=== PATIENT | female | born 1945 | race Caucasian/White ===

== ENCOUNTER 2019-02-13 19:04 | Inpatient (IN) | payer MEDICARE, OTHER ==
[~2019-02-13] VITALS: Ht 152.4 cm; Wt 73.9 kg
[~2019-02-13 19:04] MED LIST: ACETAMINOPHEN120 MG PO; AMLODIPINE BESYL5 MG ORAL; ASPIRIN EC81 MG ORAL; DOCUSATE SODIU100 M2 ORAL; LEVOTHYROXINE200 MCG IV; LEVOTHYROXINE75 MCG ORAL; NAHCO3650 MG ORAL; OMEPRAZOLE20 M2 ORAL; PROTONIX40 MG ORAL; SODIUM BICARBO454 GM MC; ZYPREXA ZYDIS10 MG ORAL; ZYPREXA10 M1
--- NOTE | 2019-02-13 19:08 | Emergency Room Report ---
History of Present Illness General Chief Complaint: Generalized Weakness Source: Medical Record Present Illness HPI 73-year-old female history of CKD, hypertension, dementia presents with AMS, x1 day, patient not compliant with her medication, patient denies any complaints at this moment however at the long-term she is noncompliant with her medication, is being aggressive, she denies any chest pain shortness of breath, patient was sent to the hospital for evaluation for her AMS and failure to thrive. There are no aggravating or relieving factors, severity is severe. Allergies: Coded Allergies: NO KNOWN DRUG ALLERGIES (Unverified Allergy, Unknown, 07/21/14) Patient History Limited by: medical condition - Dementia Past Medical History: see triage record Last Menstrual Period: n/a Reviewed Nursing Documentation: PMH: Agreed; PSxH: Agreed Nursing Documentation-PMH Past Medical History: No History, Except For Hx Cardiac Problems: Yes - Syncope Hx Hypertension: Yes - HTN Hx Cancer: No Hx Gastrointestinal Problems: No Hx Neurological Problems: No Review of Systems All Other Systems: limited - Dementia Physical Exam Vital Signs Date Time Temp Pulse Resp B/P (MAP) Pulse Ox O2 Delivery O2 Flow Rate FiO2 02/13/19 19:01 98.8 86 18 137/88 (104) 100 Room Air Sp02 EP Interpretation: reviewed, normal General Appearance: well appearing, no apparent distress, alert Head: normocephalic, atraumatic Eyes: bilateral eye PERRL, bilateral eye EOMI ENT: uvula midline, moist mucus membranes Neck: supple, thyroid normal, supple/symm/no masses Respiratory: lungs clear, no respiratory distress, no retraction, no accessory muscle use Cardiovascular #1: normal peripheral pulses, regular rate, rhythm, no edema, no gallop, no murmur Gastrointestinal: non tender, soft, no guarding, no rebound Musculoskeletal: normal inspection Neurologic: alert, speech normal Psychiatric: mood/affect normal Skin: no rash, warm/dry Medical Decision Making Diagnostic Impression: Primary Impression: Altered mental status, unspecified Additional Impressions: CKD (chronic kidney disease) Failure to thrive ER Course 73-year-old female with generalized weakness, noncompliance, EMS, will admit patient for failure to thrive, patient with no complaints, signout received from Dr. Alonzo OCONNOR Patient admitted to Dr. Alonzo OCONNOR Laboratory Tests Test 02/13/19 09:20 02/13/19 19:20 02/13/19 19:25 Troponin I 0.004 ng/mL (0.000-0.056) White Blood Count 9.2 K/UL (4.8-10.8) Red Blood Count 3.76 M/UL (4.20-5.40) L Hemoglobin 10.8 G/DL (12.0-16.0) L Hematocrit 32.7 % (37.0-47.0) L Mean Corpuscular Volume 87 FL (80-99) Mean Corpuscular Hemoglobin 28.8 PG (27.0-31.0) Mean Corpuscular Hemoglobin Concent 33.1 G/DL (32.0-36.0) Red Cell Distribution Width 13.8 % (11.6-14.8) Platelet Count 256 K/UL (150-450) Mean Platelet Volume 5.8 FL (6.5-10.1) L Neutrophils (%) (Auto) 69.9 % (45.0-75.0) Lymphocytes (%) (Auto) 19.2 % (20.0-45.0) L Monocytes (%) (Auto) 6.4 % (1.0-10.0) Eosinophils (%) (Auto) 3.3 % (0.0-3.0) H Basophils (%) (Auto) 1.1 % (0.0-2.0) Prothrombin Time 10.8 SEC (9.30-11.50) Prothrombin Time INR 1.0 (0.9-1.1) PTT 30 SEC (23-33) Sodium Level 139 MMOL/L (136-145) Potassium Level 4.0 MMOL/L (3.5-5.1) Chloride Level 105 MMOL/L (98-107) Carbon Dioxide Level 21 MMOL/L (21-32) Anion Gap 13 mmol/L (5-15) Blood Urea Nitrogen 37 mg/dL (7-18) H Creatinine 3.5 MG/DL (0.55-1.30) H Estimate Glomerular Filtration Rate mL/min (>60) Glucose Level 104 MG/DL (74-106) Lactic Acid Level 1.00 mmol/L (0.4-2.0) Calcium Level 8.4 MG/DL (8.5-10.1) L Phosphorus Level 2.7 MG/DL (2.5-4.9) Magnesium Level 1.9 MG/DL (1.8-2.4) Total Bilirubin 0.2 MG/DL (0.2-1.0) Aspartate Amino Transferase (AST) 14 U/L (15-37) L Alanine Aminotransferase (ALT) 7 U/L (12-78) L Alkaline Phosphatase 74 U/L (46-116) Total Creatine Kinase 188 U/L (26-308) Creatine Kinase MB 1.0 NG/ML (0.0-3.6) Creatine Kinase MB Relative Index 0.5 Total Protein 8.0 G/DL (6.4-8.2) Albumin 3.2 G/DL (3.4-5.0) L Globulin 4.8 g/dL Albumin/Globulin Ratio 0.7 (1.0-2.7) L Lipase 401 U/L (73-393) H Thyroid Stimulating Hormone (TSH) 4.154 uiU/mL (0.358-3.740) Free Thyroxine 0.60 NG/DL (0.76-1.46) L Free Triiodothyronine 1.7 pg/mL (2.3-4.2) L Urine Color Pale yellow Urine Appearance Slightly cloudy Urine pH 6.5 (4.5-8.0) Urine Specific [place] 1.005 (1.005-1.035) Urine Protein 3+ (NEGATIVE) H Urine Glucose (UA) 1+ (NEGATIVE) H Urine Ketones Negative (NEGATIVE) Urine Blood 1+ (NEGATIVE) H Urine Nitrite Negative (NEGATIVE) Urine Bilirubin Negative (NEGATIVE) Urine Urobilinogen Normal MG/DL (0.0-1.0) Urine Leukocyte Esterase 1+ (NEGATIVE) H Urine RBC 0-2 /HPF (0 - 2) Urine WBC 5-10 /HPF (0 - 2) H Urine Squamous Epithelial Cells Few /LPF (NONE/OCC) Urine Amorphous Sediment Moderate /LPF (NONE) H Urine Bacteria Few /HPF (NONE) EKG Diagnostic Results EKG Time: 19:09 EP Interpretation: Atrial flutter, rate 81, QTc 429, normal axis, no acute ST elevations Rate: normal Rhythm: other - Atrial flutter ST Segments: no acute changes ASA given to the pt in ED: No Chest X-Ray Diagnostic Results Chest X-Ray Diagnostic Results : Chest X-Ray Ordered: Yes # of Views/Limited/Complete: 1 View Indication: Other - Preop EP Interpretation: Yes Interpretation: no consolidation, no effusion, no pneumothorax, no acute cardiopulmonary disease Impression: No acute disease Electronically Signed by: Aristeo Isidro MD Last Vital Signs Date Time Temp Pulse Resp B/P (MAP) Pulse Ox O2 Delivery O2 Flow Rate FiO2 02/13/19 19:01 98.8 86 18 137/88 (104) 100 Room Air Disposition: ADMITTED INPATIENT Condition: Stable Aristeo Isidro MD Feb 13, 2019 19:08
--- NOTE | 2019-02-13 19:12 | NUR ---
ED Nurse Note: Patient deborah HANSEN from [facility] c/o general weakness and nonadherence to medications, patient complains of no pain at this time. Pt is AO x 3times due to dementia status, on room air no distress. ERMD seen Pt at bedside.
--- NOTE | 2019-02-13 19:22 | NUR ---
ED Nurse Note: Blood sample sent to lab.
--- NOTE | 2019-02-13 19:23 | NUR ---
ED Nurse Note: X ray at bedside.
[2019-02-13 19:28] VITALS: BP 137/100
[2019-02-13 19:37] LABS: BASOPHILS % (AUTO) 1.1 % (0.0-2.0); EOSINOPHILS % (AUTO) 3.3 % (0.0-3.0); HEMATOCRIT 32.7 % (37.0-47.0); HEMOGLOBIN 10.8 G/DL (12.0-16.0); LYMPHOCYTES % (AUTO) 19.2 % (20.0-45.0); MEAN CORPUSCULAR VOLUME 87 FL (80-99); MONOCYTES % (AUTO) 6.4 % (1.0-10.0); NEUTROPHILS % (AUTO) 69.9 % (45.0-75.0); PLATELET COUNT 256 K/UL (150-450); RED BLOOD COUNT 3.76 M/UL (4.20-5.40); RED CELL DISTRIBUTION WIDTH 13.8 % (11.6-14.8); WHITE BLOOD COUNT 9.2 K/UL (4.8-10.8)
[2019-02-13 19:46] LABS: ANION GAP 13 mmol/L (5-15); BLOOD UREA NITROGEN 37 mg/dL (7-18); CALCIUM 8.4 MG/DL (8.5-10.1); CARBON DIOXIDE 21 MMOL/L (21-32); CHLORIDE 105 MMOL/L (98-107); CREATININE 3.5 MG/DL (0.55-1.30); SODIUM 139 MMOL/L (136-145)
[2019-02-13] MEDS ORDERED: RANITIDINE HCL150 M2 PO ×2 (19:47→22:54)
[2019-02-13 20:01] LABS: ALANINE AMINOTRANSFERASE 7 U/L (12-78); ALBUMIN 3.2 G/DL (3.4-5.0); ALBUMIN/GLOBULIN RATIO 0.7 (1.0-2.7); ALKALINE PHOSPHATASE 74 U/L (46-116); ASPARTATE AMINO TRANSFERASE 14 U/L (15-37); BILIRUBIN,TOTAL 0.2 MG/DL (0.2-1.0); CREATINE KINASE 188 U/L (26-308); PHOSPHORUS 2.7 MG/DL (2.5-4.9)
--- NOTE | 2019-02-13 20:19 | NUR ---
ED Nurse Note: Urine sample sent to lab.
[2019-02-13 20:25] LABS: APPEARANCE,URINE SLIGHTLY CLOUDY; BILIRUBIN, URINE NEGATIVE (NEGATIVE); COLOR,URINE PALE YELLOW; GLUCOSE, URINE (UA) 1+ (NEGATIVE); KETONES,URINE NEGATIVE (NEGATIVE); LEUKOCYTE ESTERASE ,URINE 1+ (NEGATIVE); NITRITE,URINE NEGATIVE (NEGATIVE); PH,URINE 6.5 (4.5-8.0); PROTEIN,URINE 3+ (NEGATIVE); UROBILINOGEN,URINE NORMAL MG/DL (0.0-1.0)
--- NOTE | 2019-02-13 20:41 | NUR ---
ED Nurse Note: Phone with Pt's conservator Page, Kenzie, Pt is DNR status, will report to floor RN and verify again.
[2019-02-13 20:44] VITALS: BP 132/78
--- NOTE | 2019-02-13 21:00 | NUR ---
ED Nurse Note: Report give to RN Minsu, Pt is AO x 3 times due to dementia ststus, VSS, on [place] air no distress. daytime caregiver is on bedside with Pt's belongings.
[2019-02-13 21:10] VITALS: BP 149/94
--- NOTE | 2019-02-13 21:10 | NUR ---
NURSE NOTES: Received report from Jose F Bobo RN from ER. Patient arrived on the unit at 2109 with JORDIN Oliveira from ER. Patient in stable condition breathing without complication. Vital signs stable. Primary caregiver at the bedside, named Clarissa. Denies pain at this time. Patient knows her name, , fact that she's in the hospital, but can't recall the reason why. AAOx3, verbally responsive. Patient's belongings are with the caregiver, she does not have any valuables. Confirmed at the bedside. Skin is intact. IV sited noted on the RAC, intact, clean, dry. Bed placed at the lowest position with alarm, brakes, and side rails up x 2 for safety measures. Call light placed within reach, educated on the purpose of call light and encourage to press for any assistance. Oriented to the room to both field care advocate and the patient. Verbalize understanding. Will continue to monitor and provide care as ordered.
--- NOTE | 2019-02-13 21:34 | NUR ---
NURSE NOTES: No documentation of code status. Called Kenzie Mcmahan listed as conservator for the patient, on file. Confirmed twice with charge nurse, Thea that patient's code status is DNR/DNI from the conservator. Conservator claims that she cannot send the document to prove at this time because she is out of town.
--- NOTE | 2019-02-13 21:45 | NUR ---
NURSE NOTES: Received admission order from Dr. Brennan: to continue medication orders from the facility except to change zyprexa to 15mg QHS, place a sitter if the primary caregiver has to leave during the night, renal diet, place DNR code status as of right now and he will confirm again by calling the conservator in the morning, Heparin for DVT prophylaxis and SCDs while in bed, but patient is able to ambulate as tolerated. CBC, CMP, PHOS in the morning. Will provide care as ordered.
[2019-02-13] MEDS ORDERED: ROBITUSSIN COU237 M2 PO (22:54)
[2019-02-13] MEDS ORDERED: MIRALAX17 G2 ORAL (22:54)
[2019-02-13] MEDS ORDERED: MOM30 ML ORAL (22:54)
[2019-02-13] MEDS ORDERED: HALOPERIDOL5 MG/1 M1 IM (22:54)
[2019-02-13] MEDS ORDERED: RISPERDAL12.5 MG/2 IM (22:54)
[2019-02-13] MEDS ORDERED: NYSTATIN15 GM TOPIC (22:54)
[2019-02-13] MEDS ORDERED: HEPARIN SO5000 UNIT2 SUBQ (22:54)
[2019-02-13] MEDS ORDERED: ESOMEPRAZOLE MA20 MG PO (22:54)
[2019-02-13] MEDS ORDERED: FERROUS SULFAT325 MG ORAL (22:54)
[2019-02-13] MEDS ORDERED: ZYPREXA15 MG ORAL (22:54)
[2019-02-13] MEDS ORDERED: PRAVASTATIN SOD20 M1 ORAL (22:54)
[2019-02-13] MEDS ORDERED: ACETAMINOPHEN325 M1 ORAL (22:54)
[2019-02-13] MEDS ORDERED: SODIUM BICARBO650 MG PO (22:54)
[2019-02-13] MEDS ORDERED: Haloperidol 5mg/ml Inj IM PRN (23:00)
[2019-02-13] MEDS ORDERED: Milk of Magnesia 30ml Ud ORAL PRN ×2 (23:00→23:45)
--- NOTE | 2019-02-13 23:47 | NUR ---
NURSE NOTES: Called Navneet Reyna to check on the last dose of risperdal consta. Per facility PIZZA BAKER named Marie, there is no RN available on the facility at this shift to verify the last dose and to call back tomorrow morning to verify. Will endorse the information to daytime nurse to follow up and to clarify with the pharmacy. Addendum: 02/13/19 at 9594 by Luli Masters RN NURSE NOTES: Informed update on the risperdal to pharmacist Valentina crews [facility].
--- NOTE | 2019-02-13 23:59 | NUR ---
NURSE NOTES: Pharmacist Valentina cannot verify the heparin because of patient's GI bleed hx. Will endorse the matter to day time nurse to follow up with MD, if okay to give or not. Patient currently ambulatory and no signs of in risk for DVT. Will continue to monitor.
[2019-02-14] VITALS: BP 134/79
[2019-02-14 04:00] VITALS: BP 115/59
[2019-02-14 07:05] LABS: BASOPHILS % (AUTO) 0.4 % (0.0-2.0); EOSINOPHILS % (AUTO) 1.6 % (0.0-3.0); HEMATOCRIT 30.3 % (37.0-47.0); HEMOGLOBIN 9.9 G/DL (12.0-16.0); LYMPHOCYTES % (AUTO) 12.3 % (20.0-45.0); MEAN CORPUSCULAR VOLUME 90 FL (80-99); MONOCYTES % (AUTO) 5.2 % (1.0-10.0); NEUTROPHILS % (AUTO) 80.5 % (45.0-75.0); PLATELET COUNT 210 K/UL (150-450); RED BLOOD COUNT 3.38 M/UL (4.20-5.40); RED CELL DISTRIBUTION WIDTH 14.8 % (11.6-14.8); WHITE BLOOD COUNT 8.8 K/UL (4.8-10.8)
--- NOTE | 2019-02-14 07:30 | NUR ---
HAND-OFF: Report given to JORDIN Germain. Patient in stable condition. Caregiver, Clarissa at the bedside.
[2019-02-14 07:31] LABS: ALANINE AMINOTRANSFERASE 6 U/L (12-78); ALBUMIN 2.6 G/DL (3.4-5.0); ALBUMIN/GLOBULIN RATIO 0.6 (1.0-2.7); ALKALINE PHOSPHATASE 60 U/L (46-116); ANION GAP 10 mmol/L (5-15); ASPARTATE AMINO TRANSFERASE 13 U/L (15-37); BILIRUBIN,TOTAL 0.4 MG/DL (0.2-1.0); BLOOD UREA NITROGEN 38 mg/dL (7-18); CARBON DIOXIDE 19 MMOL/L (21-32); CHLORIDE 109 MMOL/L (98-107); CREATININE 3.6 MG/DL (0.55-1.30); PHOSPHORUS 2.8 MG/DL (2.5-4.9); POTASSIUM 4.3 MMOL/L (3.5-5.1); SODIUM 138 MMOL/L (136-145)
--- NOTE | 2019-02-14 07:53 | NUR ---
NURSE NOTES: Patient is alert and awake. Patient is eating breakfast. Caregiver is at bedside. No reports of discomfort at the moment. Side rails are upx2, bed is locked, in lowest position, and call light is within reach. Will continue to monitor.
[2019-02-14 08:00] VITALS: BP 135/80
[2019-02-14] MEDS: Sodium Bicarbonate 650mg Tab ORAL SCH ×2 (08:47→18:34)
[2019-02-14] MEDS: Miralax 17gm pkt ORAL SCH (08:48)
[2019-02-14] MEDS ORDERED: Guaifenesin/DM 10ml syrup ORAL PRN (09:00)
[2019-02-14 12:00] VITALS: BP 144/76
--- NOTE | 2019-02-14 12:34 | Diagnostic Imaging Report ---
Indication: Cough Technique: One view of the chest Comparison: 06/24/2015 Findings: The heart is borderline enlarged. There is equivocal slight blunting of left costophrenic sulcus, could indicate a small pleural effusion. Lungs are clear. The right pleural space is clear. Impression: Possible small left pleural effusion Borderline cardiomegaly
--- NOTE | 2019-02-14 13:39 | NUR ---
JOB COUNSELORCOLLEGE ATHLETE 73 YO FEMALE BIBA FROM [facility] TO ER CC NONADHERENCE TO MEDICATION, WEAKNESS SI: AMS,WEAKNESS,FAILURE TO THRIVE, ACUTE KIDNEY INJURY T. 98.7 HR 86 RR 18 B/P 137/88 BUN 37 CR. 3.5 LIPASE 401 UA+ PROTEIN,GLUCOSE,BLOOD,LEUKOCYTE ESTERASE,WBC,RBC CXR= POSSIBLE SMALL LEFT PLEURAL EFFUSION IS: ADMITTED TO MED/SURG @ 2100 MED/SURG STATUS DCP PENDING HOSPITAL STAY
--- NOTE | 2019-02-14 14:29 | NUR ---
RD ASSESSMENT & RECOMMENDATIONS SEE CARE ACTIVITY FOR COMPLETE ASSESSMENT DAILY ESTIMATED NEEDS: Needs based on Renal 50.6kg 25-30 kcals/kg 7966-8411 total kcals .8-1.2 g protein/kg 41-61 g total protein Fluid per MD NUTRITION DIAGNOSIS: Altered nutrition related lab values r/t CKD as evidenced by elev BUN (38) and elev Creat (3.6) on adm. CURRENT DIET: Renal PO DIET RECOMMENDATIONS: Rec LOW NA diet/ texture as tolerated ADDITIONAL RECOMMENDATIONS: 1) Calibrated bed scale wt-> pt w/ suspected wt loss UBW 142-146lbs vs Bed scale wt 139.5 lbs. 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
[2019-02-14 16:00] VITALS: BP 116/70
[2019-02-14] MEDS ORDERED: ZYPREXA5 MG ORAL (17:58)
--- NOTE | 2019-02-14 19:24 | NUR ---
HAND-OFF: Report given to JORDIN Rockwell.
[2019-02-14 20:00] VITALS: BP 135/65
--- NOTE | 2019-02-14 21:09 | NUR ---
NURSE NOTES: Received report from JORDIN Germain. Patient sleeping. Breathing unlabored and evenly without signs of distress, discomfort, or SOB. No signs of pain noted at this time. Patient's IV noted not patent, but refused another IV at this time. Will go back later to attempt conversation and possibly put a new IV. No IV on left arm noted. Bed placed at the lowest level with alarm, brakes, and side rails up x 2 for safety. Call light placed within reach. Will continue to monitor and provide care as ordered. Addendum: 02/14/19 at 2113 by Luli Masters RN NURSE NOTES: Received report from JORDIN Germain at 1924. Patient sleeping. Breathing unlabored and evenly without signs of distress, discomfort, or SOB. No signs of pain noted at this time. Patient's IV noted not patent, but refused another IV at this time. Will go back later to attempt conversation and possibly put a new IV. No IV on left arm noted. Bed placed at the lowest level with alarm, brakes, and side rails up x 2 for safety. Call light placed within reach. Will continue to monitor and provide care as ordered.
--- NOTE | 2019-02-14 21:47 | NUR ---
NURSE NOTES: New IV inserted on the right hand. 22g, intact, clean, patent, and currently saline locked. Explained the purpose of the IV. Patient had difficulty understanding at first, but through multiple repetition, patient verbalized understanding and tolerated the procedure well.
--- NOTE | 2019-02-14 23:15 | History and Physical Report ---
DATE OF ADMISSION: 02/13/2019 CHIEF COMPLAINT AND REASON FOR HOSPITALIZATION: The patient is admitted with altered mental status and renal failure. HISTORY OF PRESENT ILLNESS: The patient is a 73-year-old lady, well known to me for about 15 years. She has chronic kidney disease stage 5, hypothyroidism, obesity, secondary hyperparathyroidism, and history of prior treatment for peptic ulcer disease, and GI bleeding. The patient over the past few days, I have received several phone calls. 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 She has also had progressive renal failure and is nearing time for dialysis access placement in anticipation of future dialysis. 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 Her renal failure in the past did not improve with nephrostomy drainage. SURGERIES: Nephrostomy drainage and rectal prolapse. MEDICATIONS: On transfer includes sodium bicarbonate 650 b.i.d., levothyroxine 75 mcg daily, pravastatin 20 mg at bedtime, Nexium 20 mg daily, ferrous sulfate 325 daily, calcitriol on hold, nystatin p.r.n. for rash under the breast, no longer needed, MiraLAX p.r.n., ranitidine 150 b.i.d., Tylenol 650 q.6 hours p.r.n., MOM p.r.n., Robitussin p.r.n., Zyprexa 5 mg at bedtime increased to b.i.d. Within the last few days, she was ordered to have Risperdal Consta 25 mg once and Haldol 2 mg q.4 h. p.r.n., but these were not received as the patient did not allow injections at the facility. ALLERGIES: None known. HABITS: She is a nondrinker and nonsmoker. SOCIAL HISTORY: She lives in an assisted living. SYSTEM REVIEW: The patient is unable. Major problems as noted above. PHYSICAL EXAMINATION: GENERAL: The patient is lying in bed, somewhat sleepy but arousable. VITAL SIGNS: Temperature 97.2, pulse 66, respirations 18, and blood pressure 144/76. HEENT: Sclerae are nonicteric. Ocular motion intact in all directions. Oral mucosa slightly dry. NECK: No adenopathy or thyroid enlargement. LUNGS: Clear. HEART: The rhythm is regular. Normal S1, S2. I hear no murmur. ABDOMEN: Obese and soft without organomegaly or masses. EXTREMITIES: No edema, cyanosis, or clubbing. NEUROLOGIC: The patient is responsive. She states a month and year as February 2019. She is unable to do simple calculations. She is not really aware of her circumstances and situation. LABORATORY DATA: Review of pertinent laboratories showed white count of 8.8 and hemoglobin 9.9. BUN 38 and creatinine 1.6. Sodium 138, potassium 4.3, chloride 109, and CO2 19. The calcium is 8.0. Phosphorus is 2.8. Albumin is 2.6 with a TSH of 4.154. Urinalysis shows 5 to 10 white cells and 0 to 2 red cells per high-power field and 3+ protein. IMPRESSION: 1. Alzheimer's disease with agitation. 2. Schizophrenia. 3. Inability to care for herself. 4. Chronic kidney disease stage 5. 5. Anemia of chronic kidney disease. 6. Hypothyroidism. 7. Moderate protein-calorie malnutrition. PLAN: At this time, the patient is in need of adjustment of her psychiatric medicines and determination of a stable living environment where she cannot wander out on the streets. She also needs to have a dialysis access placed soon so that we can prevent the complications of late access and catheter placement in anticipation of future dialysis. Her condition is complex and involves social and medical issues and I have talked to her conservator, nurse, and case management. Fabian Brennan M.D. DR: JAYME JOB#: [id number] CC:
[2019-02-15] VITALS (7 sets, daily range): BP systolic 112–141; BP diastolic 61–79
[2019-02-15 07:26] LABS: BASOPHILS % (AUTO) 1.1 % (0.0-2.0); EOSINOPHILS % (AUTO) 4.1 % (0.0-3.0); HEMATOCRIT 31.7 % (37.0-47.0); HEMOGLOBIN 10.2 G/DL (12.0-16.0); LYMPHOCYTES % (AUTO) 21.2 % (20.0-45.0); MEAN CORPUSCULAR VOLUME 91 FL (80-99); NEUTROPHILS % (AUTO) 67.5 % (45.0-75.0); PLATELET COUNT 225 K/UL (150-450); RED BLOOD COUNT 3.48 M/UL (4.20-5.40); RED CELL DISTRIBUTION WIDTH 15.2 % (11.6-14.8)
--- NOTE | 2019-02-15 07:37 | NUR ---
HAND-OFF: Report given to JORDIN Munguia. Patient in stable condition.
[2019-02-15 07:51] LABS: % IRON SATURATION 21 % (15-50); IRON 40 ug/dL (50-175); TOTAL IRON BINDING CAPACITY 191 ug/dL (250-450)
[2019-02-15 07:57] LABS: ANION GAP 10 mmol/L (5-15); BLOOD UREA NITROGEN 42 mg/dL (7-18); CALCIUM 8.9 MG/DL (8.5-10.1); CARBON DIOXIDE 20 MMOL/L (21-32); CHLORIDE 110 MMOL/L (98-107); CREATININE 3.9 MG/DL (0.55-1.30); SODIUM 140 MMOL/L (136-145)
[2019-02-15] MEDS: Miralax 17gm pkt ORAL SCH (08:22)
[2019-02-15] MEDS: Sodium Bicarbonate 650mg Tab ORAL SCH ×2 (08:22→17:07)
[2019-02-15 08:27] LABS: FERRITIN 98 NG/ML (8-388)
--- NOTE | 2019-02-15 08:58 | NUR ---
NURSE NOTES: pt in bed with no sob nor in any form of distress noted. breathing regular and unlabored. denies pain at this time. bed in lowest position. call light within reach at all time. will continue to monitor
--- NOTE | 2019-02-15 12:16 | General Progress Note ---
Assessment/Plan Problem List: (1) Iron deficiency anemia ICD Codes: D50.9 - Iron deficiency anemia, unspecified SNOMED: 47928598 (2) dementia with agitation (3) CKD (chronic kidney disease), stage V ICD Codes: N18.5 - Chronic kidney disease, stage 5 SNOMED: 664983600 (4) Alzheimers disease ICD Codes: G30.9 - Alzheimer's disease, unspecified SNOMED: 84760114 (5) Schizophrenia ICD Codes: F20.9 - Schizophrenia, unspecified SNOMED: 41957095 (6) Anemia in chronic kidney disease ICD Codes: N18.9 - Chronic kidney disease, unspecified; D63.1 - Anemia in chronic kidney disease SNOMED: 769298544 Assessment/Plan: ad venofer, await disposition , d/w conservator+ Subjective Constitutional: Reports: other HEENT: Reports: no symptoms Cardiovascular: Reports: no symptoms Respiratory: Reports: no symptoms Gastrointestinal/Abdominal: Reports: no symptoms Genitourinary: Reports: incontinence Neurologic/Psychiatric: Reports: pre-existing deficit, other - confused Endocrine: Reports: no symptoms Hematologic/Lymphatic: Reports: anemia Allergies: Coded Allergies: NO KNOWN DRUG ALLERGIES (Unverified Allergy, Unknown, 07/21/14) Objective Last 24 Hour Vital Signs Date Time Temp Pulse Resp B/P (MAP) Pulse Ox O2 Delivery O2 Flow Rate FiO2 02/15/19 09:26 Room Air 02/15/19 08:00 97.8 93 18 121/79 (93) 95 02/15/19 04:00 98.5 94 17 141/61 (87) 95 02/15/19 00:00 98.2 85 18 125/68 (87) 94 02/14/19 21:00 Room Air 02/14/19 20:00 98.8 72 17 135/65 (88) 94 02/14/19 16:00 97.3 74 18 116/70 (85) 98 Intake and Output 02/14/19 02/15/19 19:00 07:00 Intake Total 808 ml 500 ml Balance 808 ml 500 ml Intake Oral 808 ml 500 ml # Voids 3 1 Laboratory Tests 02/15/19 05:20: Hepatitis B Surface Antigen [Pending], Hepatitis C Antibody [Pending] 02/15/19 06:15: White Blood Count 8.0, Red Blood Count 3.48L, Hemoglobin 10.2L, Hematocrit 31.7L , Mean Corpuscular Volume 91, Mean Corpuscular Hemoglobin 29.4, Mean Corpuscular Hemoglobin Concent 32.3, Red Cell Distribution Width 15.2H, Platelet Count 225, Mean Platelet Volume 5.7L, Neutrophils (%) (Auto) 67.5, Lymphocytes (%) (Auto) 21.2, Monocytes (%) (Auto) 6.0, Eosinophils (%) (Auto) 4.1H, Basophils (%) (Auto) 1.1, Sodium Level 140, Potassium Level 4.0, Chloride Level 110H, Carbon Dioxide Level 20L, Anion Gap 10, Blood Urea Nitrogen 42H, Creatinine 3.9H, Estimat Glomerular Filtration Rate , Glucose Level 85, Calcium Level 8.9, Iron Level 40L, Total Iron Binding Capacity 191L, Percent Iron Saturation 21, Unsaturated Iron Binding 151, Ferritin 98, HIV (1&2) Antibody Rapid Negative Height (Feet): 5 Height (Inches): 0.00 Weight (Pounds): 164 General Appearance: no apparent distress, alert, obese EENT: normal ENT inspection Neck: normal alignment, supple Cardiovascular: regular rhythm Respiratory/Chest: lungs clear Abdomen: non tender, soft Edema: no edema noted Arm (L), no edema noted Arm (R), no edema noted Leg (L), no edema noted Leg (R), no edema noted Pedal (L), no edema noted Pedal (R), no edema noted Generalized Neurologic: in classroom tutor II-XII grossly normal, disoriented Skin: normal pigmentation Fabian Brennan MD Feb 15, 2019 12:16
--- NOTE | 2019-02-15 13:24 | NUR ---
DECK SPECIALISTLOBBY ATTENDANT SI: AMS,WEAKNESS T. 97.8 HR 93 RR 17 B/P 141/61 RA 98% BUN 42 CR 3.9 IS: IRON IV NAHCO3 PO HEPARIN SUBC. MED/SURG STATUS
--- NOTE | 2019-02-15 17:29 | NUR ---
NURSE NOTES: Called Dr. Ross's office to clarify medication (Risperidol) 25mg IM Q2wks which our pharmacy doesn't carry. VM left at Dr. ross's office. no return call yet as of now. will follow up accordingly.
--- NOTE | 2019-02-15 19:14 | NUR ---
HAND-OFF: Report given to JORDIN Sewell.
--- NOTE | 2019-02-15 19:48 | NUR ---
NURSE NOTES: RECEIVED PT FROM JORDIN KHAN. PT IS ASLEEP,ON ROOM AIR, NO ACUTE DISTRESS NOTED. IV ON RIGHT HAND 20G IS INTACT AND PATENT. BED IS LOCKED AT THE LOWEST POSITION, BED ALARMS ACTIVE, SIDE RAILS UP X2, AND CALL LIGHT IS WITHIN REACH. WILL CONTINUE TO MONITOR.
[2019-02-15] MEDS: Heparin 5000 units/ml inj SUBQ SCH (20:18)
[2019-02-15] MEDS ORDERED: Iron Sucrose 100 MG in NS 55 ML IV SCH (21:00)
--- NOTE | 2019-02-15 22:45 | Consultation ---
DATE OF CONSULTATION: 02/15/2019 HISTORY OF PRESENT ILLNESS: The patient is a 73-year-old female with a history of psychotic disorder, who has been admitted to the hospital due to altered mental status and renal failure. The patient presents with anxiety, agitation, and delusional thoughts. Today, the patient is calmer. Her Zyprexa was increased. The patient was actively hallucinating. In addition, the patient was aggressive, presenting with waxing and waning consciousness and memory impairment. Today, she was able to answer the questions appropriately. PAST PSYCHIATRIC HISTORY: Schizophrenia and depression. PAST MEDICAL HISTORY: Includes hypothyroidism, hyperparathyroidism, renal failure, GI bleeding, and peptic ulcer. ALLERGIES: No known drug allergies. SUBSTANCE ABUSE HISTORY: No known history of illicit drug use or alcohol. SOCIAL HISTORY: The patient lives in an assisted living. MENTAL STATUS EXAMINATION: The patient is alert and oriented times self, place, and situation. Mood is dysphoric and anxious. Affect is constricted. Congruent with mood. Thought process is concrete. Thought content, no suicidal or homicidal ideations. Positive for delusions. Cognition is impaired. ASSESSMENT: [place] I Alzheimer dementia and schizophrenia. [place] II Deferred. [place] III As above. [place] IV Low. [place] V 20. PLAN: 1. We will start the patient on Prozac 20 mg in the morning for her anxiety and agitation. 2. Continue Zyprexa 15 mg at bedtime. 3. Provide the patient with reality orientation and supportive therapy. Thank you, Dr. Brennan, for consulting me. Ramon Prather M.D. DR: TERRY JOB#: [id number] CC:
[2019-02-16] VITALS: BP 149/79
[2019-02-16 04:00] VITALS: BP 107/86
[2019-02-16 06:33] LABS: ANION GAP 11 mmol/L (5-15); BLOOD UREA NITROGEN 44 mg/dL (7-18); CALCIUM 9.1 MG/DL (8.5-10.1); CARBON DIOXIDE 18 MMOL/L (21-32); CHLORIDE 108 MMOL/L (98-107); CREATININE 3.8 MG/DL (0.55-1.30); POTASSIUM 4.3 MMOL/L (3.5-5.1); SODIUM 137 MMOL/L (136-145)
--- NOTE | 2019-02-16 07:54 | NUR ---
HAND-OFF: Report given to JORDIN SANDOVAL.
[2019-02-16 08:00] VITALS: BP 127/79
[2019-02-16 08:15] LABS: BASOPHILS % (AUTO) 0.6 % (0.0-2.0); EOSINOPHILS % (AUTO) 3.4 % (0.0-3.0); HEMATOCRIT 35.4 % (37.0-47.0); HEMOGLOBIN 11.5 G/DL (12.0-16.0); LYMPHOCYTES % (AUTO) 17.3 % (20.0-45.0); MEAN CORPUSCULAR VOLUME 91 FL (80-99); MONOCYTES % (AUTO) 5.6 % (1.0-10.0); PLATELET COUNT 245 K/UL (150-450); RED CELL DISTRIBUTION WIDTH 14.8 % (11.6-14.8); WHITE BLOOD COUNT 7.5 K/UL (4.8-10.8)
[2019-02-16] MEDS: Sodium Bicarbonate 650mg Tab ORAL SCH ×2 (08:46→17:43)
--- NOTE | 2019-02-16 08:56 | Diagnostic Imaging Report ---
APPROVED REPORT CPT Code: 45948 Present Symptoms Comments: Left arm evaluate for fitsula Vein Measurements(cm) Cephalic Basilic Right LeftRight Left Upper ArmMid Upper Arm0.41 Mid Upper Arm0.18Antecubital Fossa0.45 Antecubital Fossa0.24Wrist VEIN MAPPING: The left cephalic and basilic veins were imaged and measured to evaluate as a potential graft for dialysis access. The deep and superficial veins are within normal limits. The barachial, radial and ulnar arteries are multiphasic, within normal limits.
[2019-02-16] MEDS: Miralax 17gm pkt ORAL SCH (09:00)
[2019-02-16] MEDS: Heparin 5000 units/ml inj SUBQ SCH (09:03)
[2019-02-16 12:00] VITALS: BP 122/80
--- NOTE | 2019-02-16 14:26 | NUR ---
JANITOR HEADEXPERIENTIAL THERAPIST SI: WEAKNESS,AMS T. 98.0 HR 80 RR 18 B/P 122/80 RA 98% IS: IRON IV HEPARIN SUBC NAHCO3 PO PROTONIX PO MED/SURG STATUS
--- NOTE | 2019-02-16 14:28 | NUR ---
MANAGER SHAREPOINT NOTES RECEIVED A CALL FROM MICHAELA @ [facility], PT ACCEPTED. MADE AWARE. DCP ONGOING.
[2019-02-16 16:00] VITALS: BP 120/77
[2019-02-16] MEDS ORDERED: OLANZAPINE5 MG ORAL (16:49)
[2019-02-16] MEDS ORDERED: FLUOXETINE HCL20 MG ORAL (16:49)
--- NOTE | 2019-02-16 16:54 | NUR ---
NURSE NOTES: DR SINGLETON AT BEDSIDE WITH ORDER TO DISCHARGE TO [facility] AND GIVE ONE DOSE OF OLANZAPINE 15MG BEFORE DISCHARGE AND TO TELL [facility] STAFF TO HOLD OLANZAPINE 15MG FOR TONIGHT'S DOSE.
--- NOTE | 2019-02-16 18:22 | NUR ---
NURSE NOTES: RN GAVE REPORT TO SLY VILCHIS, AT [facility]. DENG MADE AWARE RN ADMINISTERED ZYPREXA 15MG X1 AND FACILITY TO HOLD TONIGHT'S QHS DOSE OF ZYPREXA. IV ACCESS DISCONTINUED. PT STATES SHE HAS ALL OF HER BELONGINGS AND DID NOT LET RN CHECK BELONGINGS LIST. PT WAS DISCHARGED IN STABLE CONDITION WITH AMBULANCE PERSONNEL.
--- NOTE | 2019-02-17 02:30 | Discharge Summary ---
DATE OF ADMISSION: 02/13/2019 DATE OF DISCHARGE: 02/16/2019 PERTINENT HISTORY: The patient is a 73-year-old lady with a history of chronic kidney disease stage 5, hypothyroidism, obesity, secondary hyperparathyroidism, schizophrenia, peptic ulcer disease, and prior GI bleeding. She has been exhibiting somewhat agitated behavior trying to walk out of her assisted living facility and not taking her psychotropic or other medication and was agitated and had altered mental status. PERTINENT PHYSICAL FINDINGS: LUNGS: Clear. HEART: Regular rhythm. ABDOMEN: Obese and soft. EXTREMITIES: No edema. NEUROLOGIC: She can state the year, but misses the month, says it is February when it is January. She cannot do simple calculations. She is not aware of her circumstances. Cranial nerves are intact. No focal weakness. COURSE IN THE HOSPITAL: The patient was seen in and restart on psychotropic medications, which she took in the hospital. Her BUN 38, creatinine 1.6, and 44 and 3.8. Hemoglobin ranged from 9.9 to 11.5. She is borderline iron deficient. Hepatitis and HIV serologies were negative. Urinalysis showed proteinuria, but there was no evidence of UTI. Chest x-ray was negative with possible small effusion. Her behavior improved in the hospital and on the day of discharge. She is alert and ambulatory. Lungs, clear. Heart, regular rate and rhythm. Extremities, no edema. She was not agitated and she follows simple commands, but was disoriented. Arrangements were made for her to go to a senior living facility and I contacted her conservator regarding the above. FINAL DIAGNOSES: 1. Alzheimer's disease with agitation. 2. Schizophrenia. 3. Chronic kidney disease stage 5. 4. Iron-deficiency anemia. 5. Anemia of chronic kidney disease. 6. Obesity. 7. Hypothyroidism, on replacement. 8. History of peptic ulcer disease. 9. Inability to care for herself. 10. Moderate protein-calorie malnutrition. DISCHARGE DISPOSITION: To the [facility] on a no added salt diet. DISCHARGE MEDICATIONS: Per the discharge medication list. FOLLOWUP: Follow up by Dr. Brennan. Fabian Brennan M.D. DR: JAYME JOB#: [id number] CC:
--- NOTE | 2019-02-17 23:30 | Progress Note ---
DATE: 02/16/2019 SUBJECTIVE: The patient is presenting with anxiety, less depressed, not responding to internal stimuli, more redirectable. She was able to answer the questions. No behavior issues. MENTAL STATUS EXAMINATION: The patient is alert and oriented times self, place, and situation. Mood is depressed. Affect is constricted. Congruent with mood. Thought process is concrete. Thought content, no suicidal or homicidal ideations. Cognition is intact. ASSESSMENT: Stable. PLAN: We will continue current medication. Provide the patient with reality orientation and supportive therapy. Ramon Prather M.D. DR: NIKI JOB#: [id number] CC:
== END 2019-02-16 18:21 | DRG 57 ==
LOC: EDBD 19:04 → EMR 19:31 → 4E 19:38 → EDBEDREQ 19:55 → 4E 21:00
DX: G30.9 Alzheimer's disease, unspecified (principal); N18.5 Chronic kidney disease, stage 5; E44.0 Moderate protein-calorie malnutrition; N25.81 Secondary hyperparathyroidism of renal origin; F02.81 Dementia in other diseases classified elsewhere, unspecified severity, with behavioral disturbance; Z91.83 Wandering in diseases classified elsewhere; E03.9 Hypothyroidism, unspecified; R45.1 Restlessness and agitation; F20.9 Schizophrenia, unspecified; D63.1 Anemia in chronic kidney disease; D50.9 Iron deficiency anemia, unspecified; E66.9 Obesity, unspecified
CPT/HCPCS: 36415; 71045; 80048; 80053; 81003; 82550; 82553; 82728; 83540; 83550; 83605; 83690; 83735; 84100; 84439; 84443; 84481; 84484; 85025; 85610; 85730; 86703; 86803; 86850; 86900; 86901; 87040; 87081; 87340; 93005; 93922; 99285

== ENCOUNTER 2019-06-01 21:59 | Inpatient (IN) | payer MEDICARE, OTHER ==
[~2019-06-01] VITALS: Ht 157.5 cm; Wt 73.5 kg
[2019-06-01] MEDS: Albuterol/Ipratropium 3ml neb HHN SCH (04:38)
[~2019-06-01 21:59] MED LIST changes: +ACETAMINOPHEN325 M1 ORAL; +ESOMEPRAZOLE MA20 MG PO; +FERROUS SULFAT325 MG ORAL; +FLUOXETINE HCL20 MG ORAL; +HALOPERIDOL5 MG/1 M1 IM; +HEPARIN SO5000 UNIT2 SUBQ; +MIRALAX17 G2 ORAL; +MOM30 ML ORAL; +NYSTATIN15 GM TOPIC; +OLANZAPINE5 MG ORAL; +PRAVASTATIN SOD20 M1 ORAL; +RANITIDINE HCL150 M2 PO; +RISPERDAL12.5 MG/2 IM; +ROBITUSSIN COU237 M2 PO; +SODIUM BICARBO650 MG PO; +ZYPREXA15 MG ORAL; +ZYPREXA5 MG ORAL
--- NOTE | 2019-06-01 22:00 | NUR ---
ED Nurse Note: Pt AAOX4, VSS, with no acute distress. Pt is cooperative and in bed. patient brought in by ambulance PA from [facility] acute for non productive coughing and fever x1, per ems, nursing staff notified Dr. Brennan and Dr. Brennan referred pt to ED.
[2019-06-01] MEDS ORDERED: Albuterol ud Inhalation HHN ONE (22:15)
[2019-06-01] MEDS ORDERED: Miralax 17gm pkt ORAL PRN (22:30)
[2019-06-01] MEDS ORDERED: Acetaminophen 500mg (ES) tab ORAL ONE (22:30)
[2019-06-01] MEDS ORDERED: Haloperidol 5mg/ml Inj IM PRN (22:30)
[2019-06-01] MEDS ORDERED: Nitroglycerin Subl 0.4mg tab SL PRN (22:30)
[2019-06-01 22:38] LABS: BASOPHILS % (AUTO) 1.2 % (0.0-2.0); EOSINOPHILS % (AUTO) 2.2 % (0.0-3.0); HEMATOCRIT 35.8 % (37.0-47.0); HEMOGLOBIN 12.2 G/DL (12.0-16.0); LYMPHOCYTES % (AUTO) 16.6 % (20.0-45.0); MEAN CORPUSCULAR VOLUME 86 FL (80-99); MONOCYTES % (AUTO) 10.6 % (1.0-10.0); NEUTROPHILS % (AUTO) 69.4 % (45.0-75.0); PLATELET COUNT 176 K/UL (150-450); RED BLOOD COUNT 4.16 M/UL (4.20-5.40); RED CELL DISTRIBUTION WIDTH 10.9 % (11.6-14.8); WHITE BLOOD COUNT 5.5 K/UL (4.8-10.8)
[2019-06-01 22:50] LABS: ANION GAP 9 mmol/L (5-15); BLOOD UREA NITROGEN 48 mg/dL (7-18); CARBON DIOXIDE 21 MMOL/L (21-32); CHLORIDE 102 MMOL/L (98-107); CREATININE 3.2 MG/DL (0.55-1.30); POTASSIUM 4.3 MMOL/L (3.5-5.1); SODIUM 132 MMOL/L (136-145)
[2019-06-01 23:00] LABS: ALANINE AMINOTRANSFERASE 11 U/L (12-78); ALBUMIN 2.9 G/DL (3.4-5.0); ALBUMIN/GLOBULIN RATIO 0.6 (1.0-2.7); ALKALINE PHOSPHATASE 99 U/L (46-116); ASPARTATE AMINO TRANSFERASE 15 U/L (15-37); BILIRUBIN,TOTAL 0.2 MG/DL (0.2-1.0)
--- NOTE | 2019-06-01 23:00 | NUR ---
ED Nurse Note: Pt is alert and talking. Pt is in bed woth no sign of distress.
--- NOTE | 2019-06-01 23:06 | Emergency Room Report ---
History of Present Illness General Chief Complaint: Upper Respiratory Illness Source: Patient, Medical Record, EMS Present Illness HPI This is a 73-year-old female coming from [facility]. She is a DNR Comfort [facility]. She presents with chief complaint of cough and fever. Onset for 1 days. No nausea no vomiting. History is limited on this patient because of her Alzheimer. Unknown if is productive in nature or not. Allergies: Coded Allergies: NO KNOWN DRUG ALLERGIES (Unverified Allergy, Unknown, 07/21/14) Patient History Past Medical History: see triage record, old chart reviewed Past Surgical History: other Pertinent Family History: none Social History: Denies: smoking Now: No Immunizations: other Reviewed Nursing Documentation: PMH: Agreed; PSxH: Agreed Nursing Documentation-PMH Past Medical History: No History, Except For Hx Hypertension: Yes - HTN Hx Cancer: No Hx Gastrointestinal Problems: Yes - hx of rectal bleed Hx Neurological Problems: Yes Hx Dementia: Yes Hx Syncope: Yes Review of Systems Constitutional: Reports: fever Eye: Denies: eye pain, blurred vision ENT: Denies: ear pain, nose congestion, throat swelling Respiratory: Reports: cough; Denies: shortness of breath Cardiovascular: Denies: chest pain, palpitations Gastrointestinal: Denies: abdominal pain, diarrhea, nausea, vomiting Musculoskeletal: Denies: back pain, joint pain Skin: Denies: rash Neurological: Denies: headache, numbness Endocrine: Denies: increased thirst, increased urine Hematologic/Lymphatic: Denies: easy bruising All Other Systems: negative except mentioned in HPI Physical Exam Vital Signs Date Time Temp Pulse Resp B/P (MAP) Pulse Ox O2 Delivery O2 Flow Rate FiO2 06/01/19 21:50 99.3 88 22 109/72 (84) 95 Room Air 06/01/19 22:42 2.0 28 Vitals unremarkable Sp02 EP Interpretation: reviewed, normal General Appearance: well appearing, no apparent distress, alert Head: normocephalic, atraumatic Eyes: bilateral eye PERRL, bilateral eye EOMI ENT: hearing grossly normal, normal pharynx Neck: full range of motion, supple, no meningismus Respiratory: chest non-tender, decreased breath sounds, rhonchi Cardiovascular #1: regular rate, rhythm, no murmur Gastrointestinal: normal bowel sounds, non tender, no mass, no organomegaly, no bruit, non-distended Musculoskeletal: back normal, gait/station normal, normal range of motion Psychiatric: mood/affect normal Medical Decision Making Diagnostic Impression: Primary Impression: HCAP (healthcare-associated pneumonia) Additional Impression: CRF (chronic renal failure) Qualified Codes: N18.5 - Chronic kidney disease, stage 5 ER Course Patient presents with a cough and fever. Chest x-ray concerning for left lower lobe infiltrate. Will treat for H CAP. Patient will be admitted by Dr. Brennan who called in and wrote orders. No evidence of respiratory failure or distress. EKG Diagnostic Results Rate: normal Rhythm: NSR ST Segments: no acute changes Rhythm Strip Diag. Results EP Interpretation: yes Rate: 87 Rhythm: NSR, no PVC's, no ectopy Chest X-Ray Diagnostic Results Chest X-Ray Diagnostic Results : Chest X-Ray Ordered: Yes # of Views/Limited/Complete: 1 View Indication: Shortness of Breath EP Interpretation: Yes Interpretation: no effusion, no pneumothorax, other - CM with LLL infiltrate Impression: Other - LLL infiltrate Electronically Signed by: Manpreet Sánchez MD Last Vital Signs Date Time Temp Pulse Resp B/P (MAP) Pulse Ox O2 Delivery O2 Flow Rate FiO2 06/01/19 22:42 92 26 100 Nasal Cannula 2.0 28 91 20 99 06/01/19 21:50 99.3 109/72 (84) Status: improved Disposition: ADMITTED INPATIENT Condition: Serious Referrals: Fabian Brennan MD (PCP) Manpreet Sánchez MD Jun 01, 2019 23:06
[2019-06-01] MEDS ORDERED: Zosyn 3.375gm inj ONE (23:08)
[2019-06-01] MEDS ORDERED: Levothyroxine 25mcg tab ONE (23:09)
[2019-06-01] MEDS ORDERED: Piperacillin/Tazobactam 3.375 GM in NS 110 ML IVPB ONE (23:15)
[2019-06-02 00:03] VITALS: BP 109/72
--- NOTE | 2019-06-02 00:14 | NUR ---
TRANSFER TO FLOOR: Patient transferred to Tele as ordered, per Dr. Brennan . Report given to JORDIN Heaton. Belongings and medications given to JORDIN Heaton. Family and or S/O informed of transfer.
--- NOTE | 2019-06-02 00:40 | NUR ---
NURSE NOTES: Received patient via gurney. Patient is on 2 L via NC. IV site intact and patent in the left forearm. Patient denies pain at this time.
[2019-06-02] MEDS ORDERED: Vancomycin 1.25gm/NS Premix IVPB ONE (01:00)
[2019-06-02] MEDS ORDERED: Vancomycin 1.25gm vial IVPB ONE (01:22)
[2019-06-02 04:00] VITALS: BP 105/76
[2019-06-02] MEDS: Albuterol/Ipratropium 3ml neb HHN SCH ×6 (04:40→23:33)
--- NOTE | 2019-06-02 07:17 | NUR ---
NURSE NOTES: Left a message to Dr. Brennan's office for positive flu swab results. Left name and call back number. Endorsed to oncoming JORDIN Benjamin.
[2019-06-02 07:23] LABS: BASOPHILS % (AUTO) 0.9 % (0.0-2.0); EOSINOPHILS % (AUTO) 2.7 % (0.0-3.0); HEMATOCRIT 37.5 % (37.0-47.0); HEMOGLOBIN 12.1 G/DL (12.0-16.0); LYMPHOCYTES % (AUTO) 26.6 % (20.0-45.0); MEAN CORPUSCULAR VOLUME 91 FL (80-99); NEUTROPHILS % (AUTO) 52.8 % (45.0-75.0); PLATELET COUNT 148 K/UL (150-450); RED BLOOD COUNT 4.14 M/UL (4.20-5.40); RED CELL DISTRIBUTION WIDTH 12.5 % (11.6-14.8); WHITE BLOOD COUNT 4.8 K/UL (4.8-10.8)
--- NOTE | 2019-06-02 07:23 | NUR ---
HAND-OFF: Report given to JORDIN Benjamin.
[2019-06-02 08:00] VITALS: BP 129/68
--- NOTE | 2019-06-02 08:06 | NUR ---
NURSE NOTES: received report from JORDIN Prieto. patient in bed. alert. oriented. verbally responsive. no respiratory distress noted. no c/o pain at this time. Positive flu B. put the patient droplet isolation. PPE at all times. IV on LH 22 saline lock. intact. no fever. the bed in the lowest position and locked. call light within reach. alarm on. will continue to provide plan of care.
[2019-06-02 08:11] LABS: ALANINE AMINOTRANSFERASE 11 U/L (12-78); ALBUMIN 2.5 G/DL (3.4-5.0); ALBUMIN/GLOBULIN RATIO 0.6 (1.0-2.7); ALKALINE PHOSPHATASE 92 U/L (46-116); ANION GAP 12 mmol/L (5-15); ASPARTATE AMINO TRANSFERASE 18 U/L (15-37); BILIRUBIN,TOTAL 0.3 MG/DL (0.2-1.0); BLOOD UREA NITROGEN 45 mg/dL (7-18); CALCIUM 7.8 MG/DL (8.5-10.1); CARBON DIOXIDE 17 MMOL/L (21-32); CHLORIDE 109 MMOL/L (98-107); POTASSIUM 4.4 MMOL/L (3.5-5.1); SODIUM 138 MMOL/L (136-145)
[2019-06-02] MEDS: Sodium Bicarbonate 650mg Tab ORAL SCH ×2 (08:59→17:28)
[2019-06-02] MEDS: Docusate 100mg cap ORAL SCH ×2 (08:59→21:13)
[2019-06-02] MEDS: Aspirin Baby 81mg ORAL SCH (08:59)
[2019-06-02] MEDS: Heparin 5000 units/ml inj SUBQ SCH ×2 (09:00→21:00)
[2019-06-02] MEDS: Piperacillin/Tazobactam 3.375 GM in NS 110 ML IVPB SCH ×2 (09:03→21:13)
[2019-06-02 12:00] VITALS: BP 113/60
[2019-06-02 12:18] LABS: APPEARANCE,URINE SLIGHTLY CLOUDY; BILIRUBIN, URINE NEGATIVE (NEGATIVE); COLOR,URINE PALE YELLOW; GLUCOSE, URINE (UA) NEGATIVE (NEGATIVE); KETONES,URINE NEGATIVE (NEGATIVE); LEUKOCYTE ESTERASE ,URINE 3+ (NEGATIVE); NITRITE,URINE NEGATIVE (NEGATIVE); PH,URINE 6 (4.5-8.0); PROTEIN,URINE 3+ (NEGATIVE); UROBILINOGEN,URINE NORMAL MG/DL (0.0-1.0)
--- NOTE | 2019-06-02 12:59 | Diagnostic Imaging Report ---
Indication: Dyspnea Comparison: 02/13/2019 A single view chest radiograph was obtained. Findings: The heart is enlarged. Pulmonary vascular prominence demonstrated throughout both lung morse although the lungs are hypoinflated. Similar findings present previously. Bones are osteopenic. IMPRESSION: Pulmonary vascularity is prominent without overt CHF. Evaluation limited by low lung volumes. Correlate clinically.
[2019-06-02 16:00] VITALS: BP 124/66
--- NOTE | 2019-06-02 16:00 | Consultation ---
Consult Note Assessment/Plan dict influenza B Alzheimer dementia CKD 5 possible UTI added Tamiflu resp isolation Santosh Strong MD Jun 02, 2019 16:00
--- NOTE | 2019-06-02 16:09 | NUR ---
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 99.3 HR 88 RR 22 B/P 104/72 NA 132 BUN 49 CR 3.2 UA+ PROTEIN,BLOOD,LEUKOCYTE ESTERASE,RBC,WBC,BACTERIA CXR= PULMONARY VASCULAR PROMINENT CHF IS: ALB HHN TYLENOL PO IV BOLUS NS X 500ML ADMITTED TO MED/SURG MED/SURG STATUS DCP RETURN TO [facility]
[2019-06-02] MEDS ORDERED: Oseltamivir 75mg cap ORAL SCH (18:00)
--- NOTE | 2019-06-02 19:12 | NUR ---
HAND-OFF: Report given to Bryanna.
--- NOTE | 2019-06-02 19:30 | Consultation ---
DATE OF CONSULTATION: 06/02/2019 PULMONARY CONSULTATION CONSULTING PHYSICIAN: Santosh Strong M.D. CHIEF COMPLAINT: Cough and fever. HISTORY OF PRESENT ILLNESS: The patient presented to the emergency department from the [facility] with cough and fever for one day. She had no nausea or vomiting. She is a poor historian due to Alzheimer's dementia. The records reviewed. Code status DNR and comfort care. PAST MEDICAL HISTORY: Alzheimer's dementia, chronic kidney disease stage 5, hypothyroidism, chronic anemia, hyperlipidemia, acid reflux, schizophrenia, major depression. MEDICATIONS: Intramuscular Haldol p.r.n. VACCINATIONS: It is not clear if she had a flu vaccine this season or not. ALLERGIES: None. REVIEW OF SYSTEMS: Cannot be obtained. PHYSICAL EXAMINATION: GENERAL: The patient is lying in bed. She has no fever. VITAL SIGNS: Stable. She is overweight and appears awake but mumbling. HEENT: Head is normocephalic. NECK: No jugular venous distention. CHEST: Few rales. CARDIAC: Rhythm is regular. ABDOMEN: Soft and nontender. Liver and spleen not enlarged. EXTREMITIES: No clubbing, cyanosis, or edema. LABORATORY AND DIAGNOSTIC DATA: Chest x-ray reported as prominent vascularity with low lung volumes but no acute infiltrates. LABORATORY AND DIAGNOSTIC DATA: White blood count is normal. Hemoglobin is 12, creatinine 3.0. Albumin is 2.5. BNP is 490, which is high. TSH is normal. Urinalysis shows few white cells and . Influenza smear, nasal swab is positive for influenza B and negative for influenza A. IMPRESSION: 1. Cough and fever due to influenza B. 2. Alzheimer's type dementia. 3. Chronic kidney disease. 4. Mild anemia. 5. Possible UTI. PLAN: The patient will be treated with Tamiflu in addition to antibacterial medications. I will follow her closely with you. She will be placed in respiratory isolation. Santosh Strong M.D. DR: Coreen JOB#: [id number] CC: Fabian Brennan M.D.; Fax#: [phone]
--- NOTE | 2019-06-02 19:35 | NUR ---
NURSE NOTES: RECEIVED PT FROM JORDIN KIM. PT IS ASLEEP, ON NASAL CANNULA 2L, NO ACUTE DISTRESS NOTED. IV ON LEFT FA 22F IS INTACT AND PATENT. OPTIFOAM DRESSINGS ON BILATERAL HEELS AND SACRAL ARE INTACT AND DRY. BED IS LOCKED AND LOW, BED ALARMS ACTIVE, SIDE RAILS UP X2 AND CALL LIGHT IS WITHIN REACH. WILL CONTINUE TO MONITOR.
[2019-06-02 20:00] VITALS: BP 108/58
--- NOTE | 2019-06-02 20:15 | History and Physical Report ---
DATE OF ADMISSION: 06/01/2019 CHIEF COMPLAINT/REASON FOR HOSPITALIZATION: The patient is a 73-year-old lady admitted with fever, cough, pneumonia. HISTORY OF PRESENT ILLNESS: The patient is a resident of [facility], has a history of Alzheimer disease, hypothyroidism, schizophrenia, chronic kidney disease stage 4 or 5, she had fever of 101, cough. Chest x-ray showed new infiltrate. The patient has had neurogenic bladder, prior UPJ obstruction, and nephrostomies which did not improve her kidney functions. PAST SURGICAL HISTORY: Include nephrostomies and rectal prolapse. MEDICATIONS: Nexium 20 mg daily, ferrous sulfate 325 daily, levothyroxine 75 mcg daily, MiraLAX as needed, pravastatin 20 mg daily, ranitidine 150 two times a day, Risperdal suspension 25 mg IM every 14 days, sodium bicarbonate 650 b.i.d., Tylenol p.r.n. ALLERGIES: None known. HABITS: She is a nondrinker and nonsmoker. No use of illicit drugs. SOCIAL HISTORY: She lives in [facility]. She has a conservator. She has DNR directives. SYSTEM REVIEW: GENERAL: The patient is a poor historian. History as above. HEAD, EYES, EARS, NOSE, AND THROAT: Vision and hearing appeared to be good. ENDOCRINE: History of hypothyroidism, obesity. No diabetes. PULMONARY: No asthma, TB, chronic cough. CARDIAC: No angina or [place]. There is a history of hyperlipidemia. GASTROINTESTINAL: History of prior gastrointestinal bleeding and severe gastritis requiring hospitalization and transfusion. GENITOURINARY: Incontinent of urine, has neurogenic bladder as above and chronic kidney disease. NEUROLOGIC: No CVA or seizures. History of memory impairment of the Alzheimer's type. PSYCHIATRIC: History of schizophrenia. PHYSICAL EXAMINATION: GENERAL: The patient is alert lady, lying in bed, in no acute distress. VITAL SIGNS: Temperature 97.7, pulse 85, respiratory rate 19, blood pressure 113/60. HEAD, EYES, EARS, NOSE, THROAT: Sclerae are nonicteric. Ocular motion is intact in all directions. Oral mucosa moist. NECK: No adenopathy or thyroid enlargement. LUNGS: I do not hear any rales or rhonchi. She is in no distress. ABDOMEN: Obese and soft. No organomegaly. EXTREMITIES: No edema. NEUROLOGIC: She is alert and responsive. Cranial nerves are intact. She moves all extremities. She is disoriented. PERTINENT LABORATORY DATA: Show BUN 45, and creatinine 3. Sodium 138, potassium 4.4, chloride 109, CO2 19. Troponin 0.006. Albumin 2.5. Calcium 7.8. White count 4.8, hemoglobin 12.1. Urinalysis 5 to 10 white cells per high-power field. Influenza swab is reported as positive for influenza B. IMPRESSION: 1. Pneumonia, healthcare acquired. 2. Influenza B. 3. Chronic kidney disease, stage 5. 4. Alzheimer's. 5. Moderate protein-calorie malnutrition. 6. Hypothyroidism on replacement. PLAN: 1. The patient will be placed on broad-spectrum antibiotics. 2. Pending results of culture. 3. for influenza B with Tamiflu, dose adjusted. Fabian Brennan M.D. DR: Casey JOB#: [id number] CC:
[2019-06-03] VITALS: BP 122/68
[2019-06-03] MEDS: Albuterol/Ipratropium 3ml neb HHN SCH ×6 (03:00→23:11)
[2019-06-03 04:00] VITALS: BP 122/78
[2019-06-03 06:52] LABS: BASOPHILS % (AUTO) 0.7 % (0.0-2.0); EOSINOPHILS % (AUTO) 3.3 % (0.0-3.0); HEMATOCRIT 34.4 % (37.0-47.0); HEMOGLOBIN 11.1 G/DL (12.0-16.0); LYMPHOCYTES % (AUTO) 22.2 % (20.0-45.0); MEAN CORPUSCULAR VOLUME 90 FL (80-99); MONOCYTES % (AUTO) 12.3 % (1.0-10.0); NEUTROPHILS % (AUTO) 61.6 % (45.0-75.0); PLATELET COUNT 133 K/UL (150-450); RED BLOOD COUNT 3.83 M/UL (4.20-5.40); RED CELL DISTRIBUTION WIDTH 12.2 % (11.6-14.8); WHITE BLOOD COUNT 4.4 K/UL (4.8-10.8)
[2019-06-03 07:03] LABS: ANION GAP 13 mmol/L (5-15); BLOOD UREA NITROGEN 45 mg/dL (7-18); CALCIUM 7.7 MG/DL (8.5-10.1); CARBON DIOXIDE 19 MMOL/L (21-32); CHLORIDE 110 MMOL/L (98-107); CREATININE 3.4 MG/DL (0.55-1.30); POTASSIUM 4.3 MMOL/L (3.5-5.1); SODIUM 142 MMOL/L (136-145)
--- NOTE | 2019-06-03 07:46 | General Progress Note ---
Assessment/Plan Problem List: (1) CKD (chronic kidney disease), stage V ICD Codes: N18.5 - Chronic kidney disease, stage 5 SNOMED: 377636132 (2) Anemia in chronic kidney disease ICD Codes: N18.9 - Chronic kidney disease, unspecified; D63.1 - Anemia in chronic kidney disease SNOMED: 281607577 (3) HCAP (healthcare-associated pneumonia) ICD Codes: J18.9 - Pneumonia, unspecified organism SNOMED: 001558079, 303440029 (4) Alzheimers disease ICD Codes: G30.9 - Alzheimer's disease, unspecified SNOMED: 55157081 (5) Schizophrenia ICD Codes: F20.9 - Schizophrenia, unspecified SNOMED: 52905605 (6) Gastritis ICD Codes: K29.70 - Gastritis, unspecified, without bleeding SNOMED: 1338221 (7) Influenza B ICD Codes: J10.1 - Influenza due to other identified influenza virus with other respiratory manifestations SNOMED: 69450145 Assessment/Plan: continue tamiflu zosyn vanco Subjective Constitutional: Reports: weakness HEENT: Reports: no symptoms Cardiovascular: Reports: no symptoms Respiratory: Reports: cough Gastrointestinal/Abdominal: Reports: no symptoms Genitourinary: Reports: incontinence Neurologic/Psychiatric: Reports: pre-existing deficit Endocrine: Reports: no symptoms Hematologic/Lymphatic: Reports: no symptoms Allergies: Coded Allergies: NO KNOWN DRUG ALLERGIES (Unverified Allergy, Unknown, 07/21/14) Objective Last 24 Hour Vital Signs Date Time Temp Pulse Resp B/P (MAP) Pulse Ox O2 Delivery O2 Flow Rate FiO2 06/03/19 04:00 98.2 85 18 122/78 (93) 94 06/03/19 00:00 98.1 94 16 122/68 (86) 96 06/02/19 21:00 Nasal Cannula 2.0 06/02/19 20:00 99.3 108 17 108/58 (75) 95 06/02/19 19:53 91 20 98 Nasal Cannula 2.0 28 93 18 94 06/02/19 16:06 80 20 96 Nasal Cannula 2.0 28 79 18 95 06/02/19 16:00 98.4 75 17 124/66 (85) 99 06/02/19 12:00 97.7 85 19 113/60 (77) 95 06/02/19 11:38 83 20 95 Nasal Cannula 2.0 28 81 18 92 06/02/19 09:00 Nasal Cannula 2.0 06/02/19 08:00 97.9 81 17 129/68 (88) 100 06/02/19 07:56 73 20 100 Nasal Cannula 2.0 28 71 18 98 Intake and Output 06/02/19 06/03/19 18:59 06:59 Intake Total 662.5 ml 110.0 ml Balance 662.5 ml 110.0 ml Intake Oral 580 ml IV Total 82.5 ml 110.0 ml # Voids 2 1 Laboratory Tests 06/02/19 11:30: Urine Color Pale yellow, Urine Appearance Slightly cloudy, Urine pH 6, Urine Specific [place] 1.010, Urine Protein 3+H, Urine Glucose (UA) Negative, Urine Ketones Negative, Urine Blood 2+H, Urine Nitrite Negative, Urine Bilirubin Negative, Urine Urobilinogen Normal, Urine Leukocyte Esterase 3+H, Urine RBC 2- 4H, Urine WBC 5-10H, Urine Squamous Epithelial Cells Occasional, Urine Bacteria Few 06/03/19 06:00: White Blood Count 4.4L, Red Blood Count 3.83L, Hemoglobin 11.1L, Hematocrit 34.4L, Mean Corpuscular Volume 90, Mean Corpuscular Hemoglobin 28.9, Mean Corpuscular Hemoglobin Concent 32.3, Red Cell Distribution Width 12.2, Platelet Count 133L, Mean Platelet Volume 5.8L, Neutrophils (%) (Auto) 61.6, Lymphocytes (%) (Auto) 22.2, Monocytes (%) (Auto) 12.3H, Eosinophils (%) (Auto) 3.3H, Basophils (%) (Auto) 0.7, Sodium Level 142, Potassium Level 4.3, Chloride Level 110H, Carbon Dioxide Level 19L, Anion Gap 13, Blood Urea Nitrogen 45H, Creatinine 3.4H, Estimat Glomerular Filtration Rate , Glucose Level 96, Calcium Level 7.7L, Random Vancomycin Level 11.3 Height (Feet): 5 Height (Inches): 2.00 Weight (Pounds): 150 General Appearance: no apparent distress, alert, obese EENT: normal ENT inspection Neck: normal alignment Cardiovascular: normal rate, regular rhythm Respiratory/Chest: rhonchi - left Abdomen: non tender, soft Edema: no edema noted Arm (L), no edema noted Arm (R), no edema noted Leg (L), no edema noted Leg (R), no edema noted Pedal (L), no edema noted Pedal (R), no edema noted Generalized Neurologic: straw hat brusher II-XII grossly normal, disoriented Fabian Brennan MD Jun 03, 2019 07:46
[2019-06-03 08:00] VITALS: BP 109/86
--- NOTE | 2019-06-03 08:05 | NUR ---
NURSE NOTES: Patient awake, alert x3, confused; on Nasal Cannula 2 Liter, no sign of distress and shortness of breath; no sing of chest pain; IV Left-For arm 22G, IV site infiltrated, will get another IV access; side rails up x2, breaks engaged, bed at lowest position, bed alarm on; call light within reach; will keep monitoring.
[2019-06-03] MEDS ORDERED: Vancomycin 1gm/D5W 275ml IVPB ONE ×2 (09:00)
[2019-06-03] MEDS: Heparin 5000 units/ml inj SUBQ SCH ×2 (09:00→21:00)
[2019-06-03] MEDS: Docusate 100mg cap ORAL SCH ×2 (09:04→22:01)
[2019-06-03] MEDS: Aspirin Baby 81mg ORAL SCH (09:04)
[2019-06-03] MEDS: Sodium Bicarbonate 650mg Tab ORAL SCH ×2 (09:04→17:51)
--- NOTE | 2019-06-03 09:05 | Pulmonology Progress Note ---
Assessment/Plan Assessment/Plan 1. Pneumonia, healthcare acquired. 2. Influenza B. 3. Chronic kidney disease, stage 5. 4. Alzheimer's. 5. Moderate protein-calorie malnutrition. 6. Hypothyroidism on replacement. tamiflu adjusted dose O2 abx DNR will follow Subjective ROS Limited/Unobtainable: Yes Constitutional: Reports: fatigue Allergies: Coded Allergies: NO KNOWN DRUG ALLERGIES (Unverified Allergy, Unknown, 07/21/14) Objective Last 24 Hour Vital Signs Date Time Temp Pulse Resp B/P (MAP) Pulse Ox O2 Delivery O2 Flow Rate FiO2 06/03/19 08:00 97.9 99 18 109/86 (94) 93 06/03/19 04:00 98.2 85 18 122/78 (93) 94 06/03/19 00:00 98.1 94 16 122/68 (86) 96 06/02/19 21:00 Nasal Cannula 2.0 06/02/19 20:00 99.3 108 17 108/58 (75) 95 06/02/19 19:53 91 20 98 Nasal Cannula 2.0 28 93 18 94 06/02/19 16:06 80 20 96 Nasal Cannula 2.0 28 79 18 95 06/02/19 16:00 98.4 75 17 124/66 (85) 99 06/02/19 12:00 97.7 85 19 113/60 (77) 95 06/02/19 11:38 83 20 95 Nasal Cannula 2.0 28 81 18 92 Intake and Output 06/02/19 06/03/19 18:59 06:59 Intake Total 662.5 ml 110.0 ml Balance 662.5 ml 110.0 ml Intake Oral 580 ml IV Total 82.5 ml 110.0 ml # Voids 2 1 General Appearance: no acute distress HEENT: atraumatic Respiratory/Chest: rhonchi Cardiovascular: normal rate Abdomen: soft, non tender Microbiology Date/Time Source Procedure Growth Status 06/01/19 22:15 Blood Blood Culture - Preliminary NO GROWTH AFTER 24 HOURS Resulted 06/01/19 22:00 Blood Blood Culture - Preliminary NO GROWTH AFTER 24 HOURS Resulted 06/01/19 03:22 Nasal Not Otherwise Specified - Final Complete 06/01/19 03:22 Nasal Not Otherwise Specified - Final Complete 06/02/19 11:30 Straight Cath Urine Culture - Preliminary NO GROWTH Resulted Laboratory Tests 06/02/19 11:30: Urine Color Pale yellow, Urine Appearance Slightly cloudy, Urine pH 6, Urine Specific [place] 1.010, Urine Protein 3+H, Urine Glucose (UA) Negative, Urine Ketones Negative, Urine Blood 2+H, Urine Nitrite Negative, Urine Bilirubin Negative, Urine Urobilinogen Normal, Urine Leukocyte Esterase 3+H, Urine RBC 2- 4H, Urine WBC 5-10H, Urine Squamous Epithelial Cells Occasional, Urine Bacteria Few 06/03/19 06:00: White Blood Count 4.4L, Red Blood Count 3.83L, Hemoglobin 11.1L, Hematocrit 34.4L, Mean Corpuscular Volume 90, Mean Corpuscular Hemoglobin 28.9, Mean Corpuscular Hemoglobin Concent 32.3, Red Cell Distribution Width 12.2, Platelet Count 133L, Mean Platelet Volume 5.8L, Neutrophils (%) (Auto) 61.6, Lymphocytes (%) (Auto) 22.2, Monocytes (%) (Auto) 12.3H, Eosinophils (%) (Auto) 3.3H, Basophils (%) (Auto) 0.7, Sodium Level 142, Potassium Level 4.3, Chloride Level 110H, Carbon Dioxide Level 19L, Anion Gap 13, Blood Urea Nitrogen 45H, Creatinine 3.4H, Estimat Glomerular Filtration Rate , Glucose Level 96, Calcium Level 7.7L, Random Vancomycin Level 11.3 Current Medications Medications (Trade) Dose Ordered Sig/Johny Route PRN Reason Start Time Stop Time Status Last Admin Dose Admin Acetaminophen (Tylenol) 650 mg Q4H PRN ORAL Mild Pain (Pain Scale 1-3) 06/01/19 22:30 07/01/19 22:29 Acetaminophen (Tylenol) 650 mg Q4H PRN ORAL fever 06/01/19 22:30 07/01/19 22:29 Albuterol/ Ipratropium (Albuterol/ Ipratropium) 3 ml Q4HRT HHN 06/01/19 23:00 06/06/19 22:59 06/03/19 07:00 Aspirin (ASA) 81 mg DAILY ORAL 06/02/19 09:00 07/02/19 08:59 06/02/19 08:59 Dextrose (Dextrose 50%) 25 ml Q30M PRN IV Hypoglycemia 06/01/19 22:30 07/01/19 22:29 Dextrose (Dextrose 50%) 50 ml Q30M PRN IV Hypoglycemia 06/01/19 22:30 07/01/19 22:29 Docusate Sodium (Colace) 100 mg EVERY 12 HOURS ORAL 06/02/19 09:00 07/02/19 08:59 06/02/19 21:13 Famotidine (Pepcid) 20 mg DAILY ORAL 06/02/19 09:00 07/02/19 08:59 06/02/19 08:59 Ferrous Sulfate (Feosol) 325 mg DAILY ORAL 06/02/19 09:00 07/02/19 08:59 06/02/19 08:59 Haloperidol Lactate (Haldol) 2 mg Q4H PRN IM Agitation 06/01/19 22:30 07/01/19 22:29 Heparin Sodium (Porcine) (Heparin 5000 units/ml) 5,000 units EVERY 12 HOURS SUBQ 06/02/19 09:00 07/02/19 08:59 Levothyroxine Sodium (Synthroid) 75 mcg DAILY@0630 ORAL 06/02/19 06:30 07/02/19 06:29 06/03/19 06:51 Nitroglycerin (Ntg) 0.4 mg Q5M PRN SL Prn Chest Pain 06/01/19 22:30 07/01/19 22:29 Olanzapine (ZyPREXA) 5 mg BID ORAL 06/02/19 00:00 07/02/19 00:00 06/02/19 17:28 Ondansetron HCl (Zofran) 4 mg Q6H PRN IVP Nausea & Vomiting 06/01/19 22:30 07/01/19 22:29 Oseltamivir Phosphate (Tamiflu) 30 mg DAILY ORAL 06/02/19 16:00 06/07/19 15:59 06/02/19 16:14 Piperacillin Sod/ Tazobactam Sod 3.375 gm/Sodium Chloride 110 ml @ 27.5 mls/hr Q12HR IVPB 06/02/19 09:00 06/09/19 08:59 06/02/19 21:13 Polyethylene Glycol (Miralax) 17 gm DAILYPRN PRN ORAL Constipation 06/01/19 22:30 07/01/19 22:29 Pravastatin Sodium (Pravachol) 20 mg BEDTIME ORAL 06/02/19 21:00 07/02/19 20:59 06/02/19 21:13 Sodium Bicarbonate (NaHCO3) 650 mg BID ORAL 06/02/19 09:00 07/02/19 08:59 06/02/19 17:28 Vancomycin HCl (Vanco rx to dose) 1 ea DAILY PRN MISC Per rx protocol 06/01/19 22:30 07/01/19 22:29 Vancomycin HCl 1 gm/Dextrose 275 ml @ 183.708 mls/hr NOW ONCE IVPB 06/03/19 09:00 06/03/19 10:29 Santosh Strong MD Jun 03, 2019 09:05
[2019-06-03] MEDS: Piperacillin/Tazobactam 3.375 GM in NS 110 ML IVPB SCH ×2 (10:21→22:00)
--- NOTE | 2019-06-03 11:15 | NUR ---
NURSE NOTES:WOUND CARE NOTES:Pt presented on admission with both heels boggy with non-blanchable erythema. Pt denied tenderness when each heel palpated. Sacrum is pink and blanchable . No other areas of skin breakdown noted. Tx.Plan: Apply Moisture Barrier Paste with Optifoam drsg to Sacrum. Change every 3 days and prn. Apply Cavilon Skin Barrier to both heels.Cover each heel with Optifoam drsg. Change every 7 days and prn. Reposition at least every 2hours or as tolerated. Off-load heels with pillow.
[2019-06-03 12:00] VITALS: BP 121/74
[2019-06-03 16:00] VITALS: BP 112/60
--- NOTE | 2019-06-03 16:05 | NUR ---
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 97.8 HR 87 RR 18 B/P 121/74 2L NC O2 SAT @ 98% WBC 4.4 BUN 45 CR 3.4 IS: ZOSYN IV ALB HHN ZYVOX MED/SURG STATUS
--- NOTE | 2019-06-03 17:30 | NUR ---
NURSE NOTES: Tried to transfer patient to the bed side chair during meal times, however patient refused.
--- NOTE | 2019-06-03 19:31 | NUR ---
HAND-OFF: Report given to JORDIN Hewitt.
--- NOTE | 2019-06-03 19:45 | NUR ---
Nurse Notes Pt awake lying in bed no acute distress respiratory given breathing treatments as ordered. IV to right index finger intact and patent. pt able to call for assistance for elimination Pt bed in lowest position call light in reach instructed pt to continue to call for assistance before getting out of bed. gabi continue to monitor pt condition.
[2019-06-03 20:00] VITALS: BP 124/75
[2019-06-04] VITALS: BP 128/70
[2019-06-04] MEDS: Albuterol/Ipratropium 3ml neb HHN SCH ×6 (03:13→23:16)
[2019-06-04 04:00] VITALS: BP 130/78
--- NOTE | 2019-06-04 07:34 | NUR ---
Nurse notes report given to Miguel BRENNER
--- NOTE | 2019-06-04 07:51 | NUR ---
NURSE NOTES: PT AXOX1-2, CAM, RESTING IN BED. SPEECH IS MUMBLED AND INCOHERENT AT TIMES. PT STATES SHE IS IN [place] WHEN RN ASKED WHERE PT WAS. IN NO APPARENT DISTRESS AT THIS TIME. DENIES PAIN. PT'S RIGHT HAND IV ACCESS ASYMPTOMATIC, PATENT, AND INTACT. IN NO APPARENT DISTRESS AT THIS TIME. BED IN LOWEST POSITION WITH BEDSIDE RAILS X2 RAISED. BED ALARM ON ZONE 1. EDUCATED [employer] HELPER ALFREDO RAM AND PLACED WITHIN REACH. WILL CONTINUE TO MONITOR.
[2019-06-04 08:00] VITALS: BP 136/71
[2019-06-04] MEDS: Aspirin Baby 81mg ORAL SCH (08:26)
[2019-06-04] MEDS: Sodium Bicarbonate 650mg Tab ORAL SCH ×2 (08:26→17:38)
[2019-06-04] MEDS: Docusate 100mg cap ORAL SCH ×2 (08:26→23:02)
[2019-06-04] MEDS: Heparin 5000 units/ml inj SUBQ SCH ×2 (08:27→21:00)
[2019-06-04] MEDS: Piperacillin/Tazobactam 3.375 GM in NS 110 ML IVPB SCH ×2 (08:27→23:02)
--- NOTE | 2019-06-04 09:20 | Pulmonology Progress Note ---
Assessment/Plan Assessment/Plan 1. Pneumonia, healthcare acquired. 2. Influenza B. 3. Chronic kidney disease, stage 5. 4. Alzheimer's. 5. Moderate protein-calorie malnutrition. 6. Hypothyroidism on replacement. tamiflu O2 abx DNR will follow cxr thursday or prn Subjective ROS Limited/Unobtainable: Yes Allergies: Coded Allergies: NO KNOWN DRUG ALLERGIES (Unverified Allergy, Unknown, 07/21/14) Subjective on o2 no sob no cough no nv or bleeding tolerating po Objective Last 24 Hour Vital Signs Date Time Temp Pulse Resp B/P (MAP) Pulse Ox O2 Delivery O2 Flow Rate FiO2 06/04/19 08:00 97.2 90 20 136/71 (92) 96 06/04/19 06:47 80 18 98 Nasal Cannula 2.0 28 79 20 96 06/04/19 06:37 96 Nasal Cannula 2.0 28 06/04/19 04:00 97.8 76 20 130/78 (95) 98 06/04/19 03:23 75 18 99 Nasal Cannula 2.0 28 06/04/19 03:13 76 18 98 Nasal Cannula 2.0 28 06/04/19 00:00 98.4 78 21 128/70 (89) 06/03/19 23:21 77 18 97 Nasal Cannula 2.0 28 06/03/19 23:11 74 18 95 Nasal Cannula 2.0 28 06/03/19 21:00 Nasal Cannula 2.0 06/03/19 20:00 97.5 21 124/75 (91) 99 06/03/19 19:37 75 20 98 Nasal Cannula 2.0 28 06/03/19 19:27 96 Nasal Cannula 2.0 28 06/03/19 19:27 75 18 96 Nasal Cannula 2.0 28 06/03/19 16:00 98.2 82 20 112/60 (77) 96 06/03/19 15:13 83 18 97 Nasal Cannula 2.0 28 82 18 95 06/03/19 12:00 97.8 87 18 121/74 (90) 93 Intake and Output 06/03/19 06/04/19 18:59 06:59 Intake Total 1135.0 ml 1125 ml Balance 1135.0 ml 1125 ml Intake Oral 1025 ml 1025 ml IV Total 110.0 ml Other 100 ml # Voids 4 1 # Bowel Movements 1 General Appearance: WD/WN HEENT: atraumatic Respiratory/Chest: normal breath sounds, rhonchi Cardiovascular: normal rate, regular rhythm Abdomen: soft, non tender, no organomegaly Neurologic/Psychiatric: alert, disoriented Lymphatic: no neck adenopathy Microbiology Date/Time Source Procedure Growth Status 06/01/19 22:15 Blood Blood Culture - Preliminary NO GROWTH AFTER 48 HOURS Resulted 06/01/19 22:00 Blood Blood Culture - Preliminary NO GROWTH AFTER 48 HOURS Resulted 06/01/19 23:00 Nasal Nares MRSA Culture - Final NO METHICILLIN RESISTANT STAPH AUREUS... Complete 06/02/19 11:30 Straight Cath Urine Culture - Preliminary NO GROWTH AFTER 24 HOURS Resulted 06/01/19 23:00 Rectum - Final NO CARBAPENEM-RESISTANT ENTEROBACTERI... Complete 06/01/19 23:00 Rectum VRE Culture - Final NO VANCOMYCIN RESISTANT ENTEROCOCCUS ... Complete Current Medications Medications (Trade) Dose Ordered Sig/Johny Route PRN Reason Start Time Stop Time Status Last Admin Dose Admin Acetaminophen (Tylenol) 650 mg Q4H PRN ORAL Mild Pain (Pain Scale 1-3) 06/01/19 22:30 07/01/19 22:29 Acetaminophen (Tylenol) 650 mg Q4H PRN ORAL fever 06/01/19 22:30 07/01/19 22:29 Albuterol/ Ipratropium (Albuterol/ Ipratropium) 3 ml Q4HRT HHN 06/01/19 23:00 06/06/19 22:59 06/04/19 06:37 Aspirin (ASA) 81 mg DAILY ORAL 06/02/19 09:00 07/02/19 08:59 06/04/19 08:26 Dextrose (Dextrose 50%) 25 ml Q30M PRN IV Hypoglycemia 06/01/19 22:30 07/01/19 22:29 Dextrose (Dextrose 50%) 50 ml Q30M PRN IV Hypoglycemia 06/01/19 22:30 07/01/19 22:29 Docusate Sodium (Colace) 100 mg EVERY 12 HOURS ORAL 06/02/19 09:00 07/02/19 08:59 06/04/19 08:26 Famotidine (Pepcid) 20 mg DAILY ORAL 06/02/19 09:00 07/02/19 08:59 06/04/19 08:26 Ferrous Sulfate (Feosol) 325 mg DAILY ORAL 06/02/19 09:00 07/02/19 08:59 06/04/19 08:26 Haloperidol Lactate (Haldol) 2 mg Q4H PRN IM Agitation 06/01/19 22:30 07/01/19 22:29 Heparin Sodium (Porcine) (Heparin 5000 units/ml) 5,000 units EVERY 12 HOURS SUBQ 06/02/19 09:00 07/02/19 08:59 Levothyroxine Sodium (Synthroid) 75 mcg DAILY@0630 ORAL 06/02/19 06:30 07/02/19 06:29 06/04/19 06:16 Nitroglycerin (Ntg) 0.4 mg Q5M PRN SL Prn Chest Pain 06/01/19 22:30 07/01/19 22:29 Olanzapine (ZyPREXA) 5 mg BID ORAL 06/02/19 00:00 07/02/19 00:00 06/04/19 08:27 Ondansetron HCl (Zofran) 4 mg Q6H PRN IVP Nausea & Vomiting 06/01/19 22:30 07/01/19 22:29 Oseltamivir Phosphate (Tamiflu) 30 mg DAILY ORAL 06/02/19 16:00 06/07/19 15:59 06/04/19 08:26 Piperacillin Sod/ Tazobactam Sod 3.375 gm/Sodium Chloride 110 ml @ 27.5 mls/hr Q12HR IVPB 06/02/19 09:00 06/09/19 08:59 06/04/19 08:27 Polyethylene Glycol (Miralax) 17 gm DAILYPRN PRN ORAL Constipation 06/01/19 22:30 07/01/19 22:29 Pravastatin Sodium (Pravachol) 20 mg BEDTIME ORAL 06/02/19 21:00 07/02/19 20:59 06/03/19 21:59 Sodium Bicarbonate (NaHCO3) 650 mg BID ORAL 06/02/19 09:00 07/02/19 08:59 06/04/19 08:26 Vancomycin HCl (Vanco rx to dose) 1 ea DAILY PRN MISC Per rx protocol 06/01/19 22:30 07/01/19 22:29 Xochitl Matthews DO Jun 04, 2019 09:20
--- NOTE | 2019-06-04 09:28 | General Progress Note ---
Assessment/Plan Problem List: (1) CKD (chronic kidney disease), stage V ICD Codes: N18.5 - Chronic kidney disease, stage 5 SNOMED: 350072607 (2) Anemia in chronic kidney disease ICD Codes: N18.9 - Chronic kidney disease, unspecified; D63.1 - Anemia in chronic kidney disease SNOMED: 539114570 (3) HCAP (healthcare-associated pneumonia) ICD Codes: J18.9 - Pneumonia, unspecified organism SNOMED: 492926920, 118199361 (4) Alzheimers disease ICD Codes: G30.9 - Alzheimer's disease, unspecified SNOMED: 55507248 (5) Schizophrenia ICD Codes: F20.9 - Schizophrenia, unspecified SNOMED: 86159630 (6) Gastritis ICD Codes: K29.70 - Gastritis, unspecified, without bleeding SNOMED: 4698787 (7) Influenza B ICD Codes: J10.1 - Influenza due to other identified influenza virus with other respiratory manifestations SNOMED: 46015938 Assessment/Plan: [facility] Subjective Constitutional: Reports: weakness HEENT: Reports: no symptoms Cardiovascular: Reports: no symptoms Respiratory: Reports: cough, SOB with excertion Gastrointestinal/Abdominal: Reports: no symptoms Genitourinary: Reports: incontinence Neurologic/Psychiatric: Reports: pre-existing deficit Allergies: Coded Allergies: NO KNOWN DRUG ALLERGIES (Unverified Allergy, Unknown, 07/21/14) Objective Last 24 Hour Vital Signs Date Time Temp Pulse Resp B/P (MAP) Pulse Ox O2 Delivery O2 Flow Rate FiO2 06/04/19 08:00 97.2 90 20 136/71 (92) 96 06/04/19 06:47 80 18 98 Nasal Cannula 2.0 28 79 20 96 06/04/19 06:37 96 Nasal Cannula 2.0 28 06/04/19 04:00 97.8 76 20 130/78 (95) 98 06/04/19 03:23 75 18 99 Nasal Cannula 2.0 28 06/04/19 03:13 76 18 98 Nasal Cannula 2.0 28 06/04/19 00:00 98.4 78 21 128/70 (89) 06/03/19 23:21 77 18 97 Nasal Cannula 2.0 28 06/03/19 23:11 74 18 95 Nasal Cannula 2.0 28 06/03/19 21:00 Nasal Cannula 2.0 06/03/19 20:00 97.5 21 124/75 (91) 99 06/03/19 19:37 75 20 98 Nasal Cannula 2.0 28 06/03/19 19:27 96 Nasal Cannula 2.0 28 06/03/19 19:27 75 18 96 Nasal Cannula 2.0 28 06/03/19 16:00 98.2 82 20 112/60 (77) 96 06/03/19 15:13 83 18 97 Nasal Cannula 2.0 28 82 18 95 06/03/19 12:00 97.8 87 18 121/74 (90) 93 Intake and Output 06/03/19 06/04/19 18:59 06:59 Intake Total 1135.0 ml 1125 ml Balance 1135.0 ml 1125 ml Intake Oral 1025 ml 1025 ml IV Total 110.0 ml Other 100 ml # Voids 4 1 # Bowel Movements 1 Height (Feet): 5 Height (Inches): 2.00 Weight (Pounds): 150 General Appearance: no apparent distress, obese EENT: normal ENT inspection Neck: normal alignment Cardiovascular: normal rate, regular rhythm Respiratory/Chest: lungs clear Abdomen: non tender Neurologic: configuration specialist II-XII grossly normal Fabian Brennan MD Jun 04, 2019 09:28
--- NOTE | 2019-06-04 11:31 | NUR ---
NURSE NOTES: DR SINGLETON AT BEDSIDE AND ORDER TO HAVE PT OUT OF BED AND PT TO BE OFF NC 2L. PER DR SINGLETON, ONLY PUT ON NC IF DE-SATURATING. PT REFUSED TO BE OUT OF BED. RN EXPLAINED DOCTOR'S ORDERS. PT TAKEN OFF NASAL CANNULA AND NOW OXYGEN SATURATION AT 93-95%. NO SOB NOTED. CALL LIGHT WITHIN REACH.
[2019-06-04 12:00] VITALS: BP 118/67
--- NOTE | 2019-06-04 14:00 | NUR ---
NURSE NOTES: PT REFUSED TO GET OUT OF BED TO EAT LUNCH IN CHAIR DR SINGLETON ORDERED. PT EDUCATED ON RISKS OF PRESSURE ULCERS AND MUSCLE WEAKNESS. PT CONTINUED TO REFUSE STATING SHE CAN SIT UP HIGH IN BED.
[2019-06-04 16:00] VITALS: BP 146/81
--- NOTE | 2019-06-04 18:30 | NUR ---
NURSE NOTES: PT REFUSED TO EAT DINNER IN CHAIR, AND ATE DINNER IN BED. PT AMBULATED WITH RN TO BATHROOM. MINIMAL ASSIST FROM STAFF. IN NO APPARENT DISTRESS AND TOLERATED WELL.
--- NOTE | 2019-06-04 19:49 | NUR ---
HAND-OFF: Report given to Humberto FELTON RN.
--- NOTE | 2019-06-04 19:51 | NUR ---
Nurse Notes Pt awake lying in bed no acute distress respiratory breathing treatments being currently given as ordered. IV to right index finger intact and patent, running TKO. Pt bed locked, in lowest position call light in reach instructed pt to call for assistance before getting out of bed, placed bed alarm on. will continue to monitor pt condition.
[2019-06-04 20:00] VITALS: BP 137/77
--- NOTE | 2019-06-04 21:14 | NUR ---
NURSE NOTES: Pt got out of bed without pressing call light, heard bed alarm and ran to room and saw pt beginning to get on the commode. Instructed and reiterated that pt press call light for assistance, had pt demonstrate ability to use call light. Pt was able to press for assistance, bed locked in lowest position, side rail x3, zone 2 and other items in pt reach, water and cup on bedside table next to pt within reach
[2019-06-05] VITALS: BP 132/69
[2019-06-05] MEDS: Albuterol/Ipratropium 3ml neb HHN SCH ×5 (03:18→22:53)
[2019-06-05 04:00] VITALS: BP 132/74
--- NOTE | 2019-06-05 07:46 | NUR ---
HAND-OFF: Report given to JORDIN Benjamin.
[2019-06-05 08:00] VITALS: BP 121/49
[2019-06-05] MEDS: Heparin 5000 units/ml inj SUBQ SCH ×2 (08:24→20:21)
[2019-06-05] MEDS: Piperacillin/Tazobactam 3.375 GM in NS 110 ML IVPB SCH ×2 (08:36→20:24)
[2019-06-05] MEDS: Sodium Bicarbonate 650mg Tab ORAL SCH ×3 (08:37→17:26)
[2019-06-05] MEDS: Docusate 100mg cap ORAL SCH ×2 (08:37→20:24)
[2019-06-05 12:00] VITALS: BP 130/81
--- NOTE | 2019-06-05 13:49 | General Progress Note ---
Assessment/Plan Problem List: (1) CKD (chronic kidney disease), stage V ICD Codes: N18.5 - Chronic kidney disease, stage 5 SNOMED: 450500455 (2) Anemia in chronic kidney disease ICD Codes: N18.9 - Chronic kidney disease, unspecified; D63.1 - Anemia in chronic kidney disease SNOMED: 329610821 (3) HCAP (healthcare-associated pneumonia) ICD Codes: J18.9 - Pneumonia, unspecified organism SNOMED: 488512745, 730441224 (4) Alzheimers disease ICD Codes: G30.9 - Alzheimer's disease, unspecified SNOMED: 28639154 (5) Schizophrenia ICD Codes: F20.9 - Schizophrenia, unspecified SNOMED: 54652273 (6) Gastritis ICD Codes: K29.70 - Gastritis, unspecified, without bleeding SNOMED: 4112545 (7) Influenza B ICD Codes: J10.1 - Influenza due to other identified influenza virus with other respiratory manifestations SNOMED: 71969635 Assessment/Plan: continue tamiflu +zosyn, vanco dc as mrsa neg Subjective Constitutional: Reports: weakness HEENT: Reports: no symptoms Cardiovascular: Reports: no symptoms Respiratory: Reports: cough Gastrointestinal/Abdominal: Reports: no symptoms Genitourinary: Reports: incontinence Neurologic/Psychiatric: Reports: pre-existing deficit Endocrine: Reports: no symptoms Allergies: Coded Allergies: NO KNOWN DRUG ALLERGIES (Unverified Allergy, Unknown, 07/21/14) Objective Last 24 Hour Vital Signs Date Time Temp Pulse Resp B/P (MAP) Pulse Ox O2 Delivery O2 Flow Rate FiO2 06/05/19 12:00 99.0 82 20 130/81 (97) 94 06/05/19 09:00 Room Air 06/05/19 08:10 82 18 95 Room Air 82 18 06/05/19 08:00 98.2 87 16 121/49 (73) 94 06/05/19 04:00 97.4 80 20 132/74 (93) 99 06/05/19 03:28 78 18 98 Room Air 21 06/05/19 03:18 77 18 93 Room Air 21 06/05/19 00:00 97.4 82 21 132/69 (90) 98 06/04/19 23:26 80 18 99 Room Air 21 06/04/19 23:16 81 18 95 Room Air 21 06/04/19 21:00 Room Air 06/04/19 20:00 96.9 85 21 137/77 (97) 95 06/04/19 19:53 81 18 98 Room Air 21 06/04/19 19:43 94 Room Air 21 06/04/19 19:43 82 18 94 Room Air 21 06/04/19 16:00 97.1 91 18 146/81 (102) 95 06/04/19 14:49 78 20 98 Room Air 21 75 21 94 Intake and Output 06/04/19 06/05/19 18:59 06:59 Intake Total 1050.0 ml 1040 ml Balance 1050.0 ml 1040 ml Intake Oral 940 ml 940 ml IV Total 110.0 ml Other 100 ml # Voids 5 3 # Bowel Movements 2 Height (Feet): 5 Height (Inches): 2.00 Weight (Pounds): 162 General Appearance: alert, confused, obese EENT: normal ENT inspection Neck: normal alignment, supple Cardiovascular: normal rate, regular rhythm Respiratory/Chest: lungs clear Abdomen: soft Edema: no edema noted Arm (L), no edema noted Arm (R), no edema noted Leg (L), no edema noted Leg (R), no edema noted Pedal (L), no edema noted Pedal (R), no edema noted Generalized Fabian Brennan MD Jun 05, 2019 13:49
--- NOTE | 2019-06-05 14:56 | Pulmonology Progress Note ---
Assessment/Plan Assessment/Plan 1. Pneumonia, healthcare acquired. 2. Influenza B. 3. Chronic kidney disease, stage 5. 4. Alzheimer's. 5. Moderate protein-calorie malnutrition. 6. Hypothyroidism on replacement. tamiflu O2 abx DNR will follow cxr thursday or prn Subjective ROS Limited/Unobtainable: Yes Allergies: Coded Allergies: NO KNOWN DRUG ALLERGIES (Unverified Allergy, Unknown, 07/21/14) Subjective on o2 no sob no cough no nv or bleeding tolerating po Objective Last 24 Hour Vital Signs Date Time Temp Pulse Resp B/P (MAP) Pulse Ox O2 Delivery O2 Flow Rate FiO2 06/05/19 14:32 95 Room Air 06/05/19 12:00 99.0 82 20 130/81 (97) 94 06/05/19 11:00 81 18 96 Room Air 80 18 95 06/05/19 09:00 Room Air 06/05/19 08:10 82 18 95 Room Air 82 18 06/05/19 08:00 98.2 87 16 121/49 (73) 94 06/05/19 04:00 97.4 80 20 132/74 (93) 99 06/05/19 03:28 78 18 98 Room Air 21 06/05/19 03:18 77 18 93 Room Air 21 06/05/19 00:00 97.4 82 21 132/69 (90) 98 06/04/19 23:26 80 18 99 Room Air 21 06/04/19 23:16 81 18 95 Room Air 21 06/04/19 21:00 Room Air 06/04/19 20:00 96.9 85 21 137/77 (97) 95 06/04/19 19:53 81 18 98 Room Air 21 06/04/19 19:43 94 Room Air 21 06/04/19 19:43 82 18 94 Room Air 21 06/04/19 16:00 97.1 91 18 146/81 (102) 95 Intake and Output 06/04/19 06/05/19 18:59 06:59 Intake Total 1050.0 ml 1040 ml Balance 1050.0 ml 1040 ml Intake Oral 940 ml 940 ml IV Total 110.0 ml Other 100 ml # Voids 5 3 # Bowel Movements 2 General Appearance: WD/WN Respiratory/Chest: rhonchi Cardiovascular: normal rate, regularly irregular Abdomen: soft, non tender, no organomegaly Skin: no lesions Neurologic/Psychiatric: responsive, disoriented Current Medications Medications (Trade) Dose Ordered Sig/Johny Route PRN Reason Start Time Stop Time Status Last Admin Dose Admin Acetaminophen (Tylenol) 650 mg Q4H PRN ORAL Mild Pain (Pain Scale 1-3) 06/01/19 22:30 07/01/19 22:29 Acetaminophen (Tylenol) 650 mg Q4H PRN ORAL fever 06/01/19 22:30 07/01/19 22:29 Albuterol/ Ipratropium (Albuterol/ Ipratropium) 3 ml Q4HRT HHN 06/01/19 23:00 06/06/19 22:59 06/05/19 14:31 Dextrose (Dextrose 50%) 25 ml Q30M PRN IV Hypoglycemia 06/01/19 22:30 07/01/19 22:29 Dextrose (Dextrose 50%) 50 ml Q30M PRN IV Hypoglycemia 06/01/19 22:30 07/01/19 22:29 Docusate Sodium (Colace) 100 mg EVERY 12 HOURS ORAL 06/02/19 09:00 07/02/19 08:59 06/05/19 08:37 Famotidine (Pepcid) 20 mg DAILY ORAL 06/02/19 09:00 07/02/19 08:59 06/04/19 08:26 Ferrous Sulfate (Feosol) 325 mg DAILY ORAL 06/02/19 09:00 07/02/19 08:59 06/05/19 08:36 Haloperidol Lactate (Haldol) 2 mg Q4H PRN IM Agitation 06/01/19 22:30 07/01/19 22:29 Heparin Sodium (Porcine) (Heparin 5000 units/ml) 5,000 units EVERY 12 HOURS SUBQ 06/02/19 09:00 07/02/19 08:59 Levothyroxine Sodium (Synthroid) 75 mcg DAILY@0630 ORAL 06/02/19 06:30 07/02/19 06:29 06/05/19 06:37 Nitroglycerin (Ntg) 0.4 mg Q5M PRN SL Prn Chest Pain 06/01/19 22:30 07/01/19 22:29 Olanzapine (ZyPREXA) 5 mg BID ORAL 06/02/19 00:00 07/02/19 00:00 06/05/19 08:37 Ondansetron HCl (Zofran) 4 mg Q6H PRN IVP Nausea & Vomiting 06/01/19 22:30 07/01/19 22:29 Oseltamivir Phosphate (Tamiflu) 30 mg DAILY ORAL 06/02/19 16:00 06/07/19 15:59 06/05/19 08:37 Piperacillin Sod/ Tazobactam Sod 3.375 gm/Sodium Chloride 110 ml @ 27.5 mls/hr Q12HR IVPB 06/02/19 09:00 06/09/19 08:59 06/05/19 08:36 Polyethylene Glycol (Miralax) 17 gm DAILYPRN PRN ORAL Constipation 06/01/19 22:30 07/01/19 22:29 Pravastatin Sodium (Pravachol) 20 mg BEDTIME ORAL 06/02/19 21:00 07/02/19 20:59 06/04/19 23:02 Sodium Bicarbonate (NaHCO3) 650 mg BID ORAL 06/02/19 09:00 07/02/19 08:59 06/04/19 17:38 Xochitl Matthews DO Jun 05, 2019 14:56
[2019-06-05 16:00] VITALS: BP 133/93
--- NOTE | 2019-06-05 19:27 | NUR ---
NURSE NOTES: received report from JORDIN Hurt. patient alert. oriented. verbally responsive. no respiratory distress noted. no c/o pain at this time. IV on RH hand saline lock. intact. drophlet isolation. PPE at all times bed in the lowerst position. call light within reach. alarm on. will continue to provide plan of care.
--- NOTE | 2019-06-05 19:29 | NUR ---
HAND-OFF: Report given to JORDIN Millan.
--- NOTE | 2019-06-05 19:50 | NUR ---
NURSE NOTES: Received patient awake in bed, no s/s of acute distress, no c/o pain at this time. Bed low and locked, patient clean and dry. Droplet precautions noted. IV access right hand (index finger) patent, dressing dry and intact.
[2019-06-05 20:00] VITALS: BP 130/70
[2019-06-06] VITALS: BP 125/72
[2019-06-06] MEDS: Albuterol/Ipratropium 3ml neb HHN SCH ×6 (03:37→22:42)
--- NOTE | 2019-06-06 07:30 | NUR ---
NURSE NOTES: Received pt from JORDIN CARRASCO. pt is awake A&O X4. Pt has NC 2LMP. pt has intact iv access RFA 20G SL. Pt is eating breakfast by observation. all needs attended, bed is locked and is in the lowest position, call light within easy reach. will continue to monitor.
--- NOTE | 2019-06-06 07:30 | NUR ---
NURSE NOTES: Received pt from JORDIN CARRASCO. pt is awake A&O X3. Pt is in RA, no SOB or acute respiratory distress noted. pt has intact iv access RH 22G SL. Pt is eating breakfast by observation. Pt is in droplet isolation. all needs attended, bed is locked and is in the lowest position, call light within easy reach. will continue to monitor.
--- NOTE | 2019-06-06 07:44 | NUR ---
HAND-OFF: Report given to JORDIN Matos.
[2019-06-06 08:00] VITALS: BP 136/74
[2019-06-06 08:28] LABS: BASOPHILS % (AUTO) 0.8 % (0.0-2.0); EOSINOPHILS % (AUTO) 7.8 % (0.0-3.0); HEMATOCRIT 31.7 % (37.0-47.0); HEMOGLOBIN 10.5 G/DL (12.0-16.0); LYMPHOCYTES % (AUTO) 21.9 % (20.0-45.0); MEAN CORPUSCULAR VOLUME 87 FL (80-99); MONOCYTES % (AUTO) 9.4 % (1.0-10.0); NEUTROPHILS % (AUTO) 60.1 % (45.0-75.0); PLATELET COUNT 129 K/UL (150-450); RED BLOOD COUNT 3.63 M/UL (4.20-5.40); RED CELL DISTRIBUTION WIDTH 11.2 % (11.6-14.8); WHITE BLOOD COUNT 4.9 K/UL (4.8-10.8)
[2019-06-06 08:52] LABS: ANION GAP 9 mmol/L (5-15); BLOOD UREA NITROGEN 46 mg/dL (7-18); CALCIUM 8.2 MG/DL (8.5-10.1); CARBON DIOXIDE 22 MMOL/L (21-32); CHLORIDE 111 MMOL/L (98-107); CREATININE 3.3 MG/DL (0.55-1.30); SODIUM 142 MMOL/L (136-145)
[2019-06-06] MEDS: Heparin 5000 units/ml inj SUBQ SCH (09:00)
[2019-06-06] MEDS: Docusate 100mg cap ORAL SCH (09:38)
[2019-06-06] MEDS: Piperacillin/Tazobactam 3.375 GM in NS 110 ML IVPB SCH (09:38)
[2019-06-06] MEDS: Sodium Bicarbonate 650mg Tab ORAL SCH ×2 (09:38→17:28)
--- NOTE | 2019-06-06 09:45 | NUR ---
RADIOLOGY: PCXR COMPLETED 0945HRS. NF
--- NOTE | 2019-06-06 10:38 | Diagnostic Imaging Report ---
Indication: Cough Technique: One view of the chest Comparison: 06/01/2019 Findings: Body habitus somewhat limits evaluation. There is some atelectasis at the right lung base. Left hemidiaphragm is somewhat obscured, equivocally also evident previously. Lungs and pleural spaces are otherwise clear. Impression: Somewhat obscured left hemidiaphragm, probably related to body habitus but basilar infiltrate and/or pleural fluid also possible. Right basilar atelectasis
[2019-06-06 12:00] VITALS: BP 131/76
--- NOTE | 2019-06-06 12:11 | NUR ---
RD ASSESSMENT & RECOMMENDATIONS SEE CARE ACTIVITY FOR COMPLETE ASSESSMENT DAILY ESTIMATED NEEDS: Needs based on CKD, wound/ 53kg abw 25-30 kcals/kg 4137-2732 total kcals 0.9-1.1 g protein/kg 48-58 g total protein 25-30 mL/kg 8019-9623 total fluid mLs NUTRITION DIAGNOSIS: * Increased kcal/prot needs R/T wound healing as evidenced by pt admitted w/ nonblanchable erythema @ BL heels. * Altered nutrition related lab values r/t CKD as evidenced by elev BUN (46) and elev Creat (3.3) CURRENT DIET:BRAULIO PO DIET RECOMMENDATIONS: LOW NA diet/ texture as tolerated ADDITIONAL RECOMMENDATIONS: 1) Calibrated bed scale wt 2) Monitor lytes closely w/ CKD V - K wnl, phos and mag not yet checked 3) Add MVI x 1 and Josafat 1pkt BID as tolerated to improve skin integrity 4) Monitor for continued good PO intake . .
--- NOTE | 2019-06-06 12:31 | Pulmonology Progress Note ---
Assessment/Plan Assessment/Plan 1. Pneumonia, healthcare acquired. 2. Influenza B. 3. Chronic kidney disease, stage 5. 4. Alzheimer's. 5. Moderate protein-calorie malnutrition. 6. Hypothyroidism on replacement. tamiflu adjusted dose for CKD off O2 abx change to oral soon DNR dc planning Subjective ROS Limited/Unobtainable: Yes Constitutional: Reports: no symptoms Allergies: Coded Allergies: NO KNOWN DRUG ALLERGIES (Unverified Allergy, Unknown, 07/21/14) Objective Last 24 Hour Vital Signs Date Time Temp Pulse Resp B/P (MAP) Pulse Ox O2 Delivery O2 Flow Rate FiO2 06/06/19 11:20 80 18 97 Room Air 21 78 18 95 06/06/19 09:00 Room Air 06/06/19 08:00 98.1 83 18 136/74 (94) 95 06/06/19 07:48 94 Room Air 21 06/06/19 07:48 82 18 96 Room Air 21 80 18 94 06/06/19 03:47 76 18 99 Room Air 21 06/06/19 03:37 75 18 94 Room Air 21 06/06/19 00:00 96.9 80 21 125/72 (89) 96 06/05/19 23:33 Room Air 06/05/19 23:03 80 18 98 Room Air 21 06/05/19 22:53 81 18 94 Room Air 21 06/05/19 20:00 98.2 83 20 130/70 (90) 100 06/05/19 19:40 81 18 98 Room Air 21 06/05/19 19:30 85 20 95 Room Air 21 06/05/19 19:30 95 Room Air 21 06/05/19 16:00 99.1 89 20 133/93 (106) 100 06/05/19 15:00 20 18 98 Room Air 20 06/05/19 14:32 95 Room Air Intake and Output 06/05/19 06/06/19 19:00 07:00 Intake Total 960 ml 250 ml Balance 960 ml 250 ml Intake Oral 960 ml 250 ml # Voids 6 2 General Appearance: no acute distress HEENT: atraumatic Respiratory/Chest: lungs clear Cardiovascular: normal rate Laboratory Tests 06/06/19 05:26: White Blood Count 4.9, Red Blood Count 3.63L, Hemoglobin 10.5L, Hematocrit 31.7L , Mean Corpuscular Volume 87, Mean Corpuscular Hemoglobin 29.1, Mean Corpuscular Hemoglobin Concent 33.3, Red Cell Distribution Width 11.2L, Platelet Count 129L, Mean Platelet Volume 5.9L, Neutrophils (%) (Auto) 60.1, Lymphocytes (%) (Auto) 21.9, Monocytes (%) (Auto) 9.4, Eosinophils (%) (Auto) 7.8H, Basophils (%) (Auto) 0.8, Sodium Level 142, Potassium Level 4.0, Chloride Level 111H, Carbon Dioxide Level 22, Anion Gap 9, Blood Urea Nitrogen 46H, Creatinine 3.3H, Estimat Glomerular Filtration Rate , Glucose Level 84, Calcium Level 8.2L Current Medications Medications (Trade) Dose Ordered Sig/Johny Route PRN Reason Start Time Stop Time Status Last Admin Dose Admin Acetaminophen (Tylenol) 650 mg Q4H PRN ORAL Mild Pain (Pain Scale 1-3) 06/01/19 22:30 07/01/19 22:29 Acetaminophen (Tylenol) 650 mg Q4H PRN ORAL fever 06/01/19 22:30 07/01/19 22:29 Albuterol/ Ipratropium (Albuterol/ Ipratropium) 3 ml Q4HRT HHN 06/05/19 19:00 06/10/19 18:59 06/06/19 11:21 Dextrose (Dextrose 50%) 25 ml Q30M PRN IV Hypoglycemia 06/01/19 22:30 07/01/19 22:29 Dextrose (Dextrose 50%) 50 ml Q30M PRN IV Hypoglycemia 06/01/19 22:30 07/01/19 22:29 Docusate Sodium (Colace) 100 mg EVERY 12 HOURS ORAL 06/02/19 09:00 07/02/19 08:59 06/06/19 09:38 Famotidine (Pepcid) 20 mg DAILY ORAL 06/02/19 09:00 07/02/19 08:59 06/06/19 09:37 Ferrous Sulfate (Feosol) 325 mg DAILY ORAL 06/02/19 09:00 07/02/19 08:59 06/06/19 09:37 Haloperidol Lactate (Haldol) 2 mg Q4H PRN IM Agitation 06/01/19 22:30 07/01/19 22:29 Heparin Sodium (Porcine) (Heparin 5000 units/ml) 5,000 units EVERY 12 HOURS SUBQ 06/02/19 09:00 07/02/19 08:59 Levothyroxine Sodium (Synthroid) 75 mcg DAILY@0630 ORAL 06/02/19 06:30 07/02/19 06:29 06/06/19 05:37 Nitroglycerin (Ntg) 0.4 mg Q5M PRN SL Prn Chest Pain 06/01/19 22:30 07/01/19 22:29 Olanzapine (ZyPREXA) 5 mg BID ORAL 06/02/19 00:00 07/02/19 00:00 06/06/19 09:38 Ondansetron HCl (Zofran) 4 mg Q6H PRN IVP Nausea & Vomiting 06/01/19 22:30 07/01/19 22:29 Oseltamivir Phosphate (Tamiflu) 30 mg DAILY ORAL 06/02/19 16:00 06/07/19 15:59 06/06/19 09:38 Piperacillin Sod/ Tazobactam Sod 3.375 gm/Sodium Chloride 110 ml @ 27.5 mls/hr Q12HR IVPB 06/02/19 09:00 06/09/19 08:59 06/06/19 09:38 Polyethylene Glycol (Miralax) 17 gm DAILYPRN PRN ORAL Constipation 06/01/19 22:30 07/01/19 22:29 Pravastatin Sodium (Pravachol) 20 mg BEDTIME ORAL 06/02/19 21:00 07/02/19 20:59 06/05/19 20:24 Sodium Bicarbonate (NaHCO3) 650 mg BID ORAL 06/02/19 09:00 07/02/19 08:59 06/06/19 09:38 Santosh Strong MD Jun 06, 2019 12:31
[2019-06-06 16:00] VITALS: BP 127/79
[2019-06-06] MEDS ORDERED: AUGMENTIN 500-1 EACH ORAL (18:03)
--- NOTE | 2019-06-06 18:36 | NUR ---
NURSE NOTES: spoke to lilliana view , pt room number is 15b and no record of flu shot, left voicemail to Karma Page re dcp.
--- NOTE | 2019-06-06 18:42 | NUR ---
NURSE NOTES: put a will call for [facility] for [facility]
--- NOTE | 2019-06-06 19:38 | NUR ---
NURSE NOTES: Dr SINGLETON visited pt and put D/C order, all discharge assessments and instructions done and pt verbally confirmed to understand all. pt is stable, V/S stable. skin is intact. all belongings are with pt and list signed by pt. SAUL MATSON gave report to [facility]. 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 Report given to JORDIN CARRASCO.
[2019-06-06 20:00] VITALS: BP 128/69
--- NOTE | 2019-06-06 22:00 | NUR ---
NURSE NOTES: Patient discharged to [facility] where patient is originally from. VSS. IV access discontinued, patient tolerated well. Left unit without incident.
--- NOTE | 2019-06-07 02:45 | Discharge Summary ---
DATE OF ADMISSION: 06/01/2019 DATE OF DISCHARGE: 06/06/2019 PERTINENT HISTORY: The patient has a history of Alzheimer disease, chronic kidney disease stage 4 or 5, hypothyroidism, and schizophrenia. She presents with a fever over 101 and cough at the retirement. PERTINENT PHYSICAL FINDINGS: See my dictated History and Physical. HEAD, EYES, EARS, NOSE, AND THROAT: Unremarkable. LUNGS: No rales or rhonchi are heard. HEART: Regular rhythm. No murmur. ABDOMEN: Soft. EXTREMITIES: No edema. COURSE IN THE HOSPITAL: The patient was treated for healthcare acquired pneumonia. She had a positive swab for influenza B and was given Tamiflu. The patient was in isolation and needed to complete her course of Tamiflu prior to returning to the ECF. She had no respiratory distress and no adverse events and she was discharged back to the ECF in stable condition. FINAL DIAGNOSES: 1. Pneumonia, healthcare-acquired. 2. Influenza B. 3. Chronic kidney disease stage 5. 4. Alzheimer's. 5. Hypothyroidism, on replacement. DISCHARGE DISPOSITION: To the ECF on a regular diet. MEDICATIONS: Per the discharge medication list. FOLLOWUP: Follow up by Dr. Brennan. Fabian Brennan M.D. DR: JAYME JOB#: [id number] CC:
== END 2019-06-06 23:15 | DRG 194 ==
LOC: EDBD 21:59 → EMR 22:15 → EDBEDREQ 22:27 → 4E 23:13 → EDBEDREQ 23:23
DX: J10.00 Influenza due to other identified influenza virus with unspecified type of pneumonia (principal); I12.0 Hypertensive chronic kidney disease with stage 5 chronic kidney disease or end stage renal disease; N18.5 Chronic kidney disease, stage 5; E44.0 Moderate protein-calorie malnutrition; G30.9 Alzheimer's disease, unspecified; F02.80 Dementia in other diseases classified elsewhere, unspecified severity, without behavioral disturbance, psychotic disturbance, mood disturbance, and anxiety; E03.9 Hypothyroidism, unspecified; Z66 Do not resuscitate; Y95 Nosocomial condition; K29.70 Gastritis, unspecified, without bleeding; Z68.31 Body mass index [BMI] 31.0-31.9, adult
CPT/HCPCS: 36415; 71045; 80048; 80053; 80202; 81003; 83605; 83880; 84443; 84484; 85025; 86710; 87040; 87081; 87086; 93005; 94640; 94664; 99285; J7620